=== PATIENT | male | born 1970 | race Caucasian/White ===

== ENCOUNTER 2024-01-11 07:40 | Inpatient (IN) | payer OTHER, SELFPAY ==
[2024-01-11] VITALS (16 sets, daily range): BP systolic 99–154; BP diastolic 54–73; PULSE 59–82; RESP 14–20; TEMP 36.2–37.1; O2SAT 92–97; BMI 37.3
--- NOTE | ~2024-01-11 | CT_ITS ---
EXAMINATION: CT ABDOMEN AND PELVIS WITH CONTRAST CLINICAL INFORMATION: Abdominal pain, umbilical hernia pain COMPARISON: None available. TECHNIQUE: Multidetector volumetric images were obtained from the superior aspect of the liver through the pubic symphysis following administration 85 mL of Omnipaque 350 intravenous contrast. Sagittal and coronal reformatted images were obtained on the technologist's workstation. Oral contrast: No This CT examination was performed using dose optimization techniques as appropriate, variously including the following: *Automated exposure control *Adjustment of mA and/or kV according to patient size (this includes techniques or standardized protocols for targeted exams where dose is matched to indication/reason for exam; i.e. extremities or head) *Use of iterative reconstruction technique DLP: 993 mGy-cm FINDINGS: LUNG BASES: The visualized lung bases are unremarkable. LIVER, GALLBLADDER, AND BILIARY TREE: The liver is enlarged at 19.3 cm in cephalocaudad dimension and has a lobular border with hypertrophy of the left lobe consistent with cirrhosis. No focal hepatic lesion or biliary ductal dilatation is present. The gallbladder is unremarkable with no evidence of radiopaque gallstones, gallbladder wall thickening, or obvious pericholecystic inflammatory changes. PANCREAS: Unremarkable. SPLEEN: Spleen is markedly enlarged at 18 cm in length. ADRENAL GLANDS: Unremarkable. KIDNEYS AND URETERS: The kidneys are normal in size, shape, and attenuation. Bilateral nonobstructing punctate calculi are seen with the largest measuring 3 mm in the left mid kidney (3:42). No hydronephrosis, hydroureter, or ureteral calculi seen. No perinephric stranding. Multiple bilateral tiny benign Bosniak class I renal cysts are noted, which require no additional imaging or follow-up. No solid renal masses are seen. BLADDER: Decompressed but unremarkable GASTROINTESTINAL TRACT: A small hiatal hernia is present. A loop of small bowel is present in an umbilical hernia. The bowel proximal to entry is dilated consistent with obstruction. The exiting loop and distal small bowel is decompressed. The bowel loop within the hernia appears mildly edematous. The colon is decompressed. Some scattered colonic diverticula are seen without diverticulitis. The appendix is normal. ABDOMINAL WALL: A obstructing periumbilical hernia is seen (see above). The fascial defect measures about 1.8 cm. LYMPH NODES: No retroperitoneal lymphadenopathy. VASCULAR: Calcific atherosclerotic changes are present in the aorta and iliofemoral vessels. There is no evidence of an abdominal aortic aneurysm. PELVIC VISCERA: The prostate and seminal vesicles are unremarkable. OSSEOUS STRUCTURES: Multiple subacute rib fractures are seen bilaterally. Slightly more acute fractures are seen involving the right 10th and 11th posterolateral ribs. Degenerative changes are present in the spine most marked at L4-L5 and L5-S1. CT/CT abdomen pelvis w IV con IMPRESSION: 1. Obstructing umbilical hernia containing a loop of small bowel. Inflammatory change with some mild edema in the sac may represent incarceration. 2. Enlarged cirrhotic liver with marked splenomegaly. 3. Bilateral nonobstructing renal calculi. 4. Multiple subacute rib fractures with slightly more acute fractures involving the right 10th and 11th posterolateral ribs. Fleischner guidelines were followed.
--- NOTE | 2024-01-11 08:00 | ED_ITS ---
HPI - Abdominal Pain General Chief Complaint: Abdominal Pain Stated Complaint: ABD PAIN VOMITING X 2 DAYS Time Seen by Provider: 01/11/24 07:51 Source: patient and RN notes reviewed Mode of arrival: ambulatory Limitations: no limitations History of Present Illness HPI narrative: This is a 53-year-old male, with a history of diabetes, presenting to the emergency department complaints of acute onset abdominal pain, nausea, and vomiting x2 days. Patient states that he has a umbilical abdominal hernia and he states that his hernia is now increasing in pain and in size. States that over the last 3 days he has been vomiting ?green bile?. Denies any fevers, chills, chest pain, shortness of breath, diarrhea or constipation. No sick contacts. No other complaints or concerns at this time. MD elicited complaint: abdominal pain Pertinent past history: none Onset (ago): day(s) Pain Consistency: constant Location: periumbilical Severity: moderate Pain scale (0-10): 10 Quality: cramping, stabbing and aching Radiation: none Migration to: no migration Exacerbating factors: vomiting Relieving factors: nothing Associated symptoms: nausea and vomiting Related Data Home Medications Medication Instructions Recorded Confirmed albuterol sulfate 90 mcg/actuation 2 puff inhalation Q6H PRN Wheezing 01/11/24 01/11/24 aerosol inhaler (Ventolin HFA) atorvastatin 40 mg tablet 40 mg PO DAILY 01/11/24 01/11/24 escitalopram oxalate 20 mg tablet 20 mg PO DAILY 01/11/24 01/11/24 furosemide 20 mg tablet 20 mg PO TID 01/11/24 01/11/24 gabapentin 300 mg capsule 300 mg PO TID 01/11/24 01/11/24 levothyroxine 175 mcg tablet 175 mcg PO DAILY 01/11/24 01/11/24 metformin 1,000 mg tablet 1,000 mg PO BID 01/11/24 01/11/24 midodrine 10 mg tablet 10 mg PO BID 01/11/24 01/11/24 pantoprazole 40 mg tablet,delayed 40 mg PO BID 01/11/24 01/11/24 release spironolactone 50 mg tablet 50 mg PO DAILY 01/11/24 01/11/24 Allergies Allergy/AdvReac Type Severity Reaction Status Date / Time No Known Allergies Allergy Verified 01/11/24 13:44 Review of Systems Review of Systems Yes all other systems are reviewed and are negative Constitutional: Reports as per [facility] Past Medical History Attestation statement: The following information was validated with the patient. Medical History (Updated 01/11/24 @ 13:42 by Linda Aparicio) Kidney stones Stage 1 chronic kidney disease Cirrhosis Hyperlipidemia Diabetes type 2, controlled Incarcerated umbilical hernia Surgical History (Updated 01/11/24 @ 13:43 by Linda Aparicio) H/O knee surgery History of surgery on lower extremity H/O elbow surgery H/O Spinal surgery Social History Social History Patient Tobacco Use Status: Former Tobacco user Quit Date: 11/2023 Tobacco use type: Cigarette Cigarette Packs Per Day: 8 Cigarettes Per Day: 160.0 Years Smoked: 18 Substance Use Type: Marijuana Physical Exam ED Vital Signs: Vital Signs - 24 hr 01/11/24 07:54 01/11/24 11:37 01/11/24 13:01 Temperature 97.6 F 98.2 F Pulse Rate 72 62 59 Respiratory Rate 15 20 16 Blood Pressure 154/73 H 99/57 L 102/64 Pulse Oximetry 95 94 94 Oxygen Delivery Method Room Air Room Air Room Air BMI result Body Mass Index 37.3 Const General: cooperative, comfortable and no acute distress Orientation/consciousness: patient oriented x3 Limitations: no limitations [facility] Head: Yes normal to inspection, Yes normocephalic and Yes atraumatic Ears: hearing grossly normal bilaterally General nose exam: Normal external nose present Face and sinus: Yes normal facial exam Mouth: Normal oral and palatal mucosa present, oropharynx normal and moist mucous membranes Throat: Yes posterior oropharynx normal Eyes General: appearance normal, both eyes and all related structures Eyelids: Yes eyelids normal Conjunctivae: conjunctivae normal Sclerae: sclerae normal Pupils: Equal, round and reactive pupils present EOM: EOMs intact bilaterally Neck Neck: Yes normal visual inspection, Yes full ROM and Yes no lymphadenopathy Lymphatic: no lymphadenopathy noted Chest Other: No flail chest, no bony step-off, crepitus bony deformity, patient has tenderness palpation along the left and right lateral ribs, Chest palpation & inspection: normal inspection of the chest Resp Effort & Inspection: normal respiratory effort and able to speak in complete sentences Auscultation: clear to auscultation bilaterally, no crackles, no rales, no rhonchi and no wheezes Cardio Rate: regular rate Rhythm: regular rhythm Heart sounds: S1 normal heart sound present and S2 normal heart sound present GI Other: Obese abdomen, with non reproducible umbilical hernia, slight erythema noted to the umbilicus. Unable to reduce hernia. Lower abdomen diffusely tender. No rebound or guarding. Inspection: Yes normal to inspection Skin General skin exam: no rashes or lesions noted Trauma: no lacerations or abrasions Wounds: no wounds Neuro General: patient oriented x3 and moves all extremities Cranial nerves: Yes Equal, round and reactive pupils present Extrem General: Yes normal to inspection Right upper extremity: normal to inspection Left upper extremity: normal to inspection Right lower extremity: normal to inspection Left lower extremity: normal to inspection Course Reevaluation(s) Reevaluation #1: CT scan returns, revealing obstructing umbilical hernia containing a small loop of bowel, inflammatory change with some mild edema in the sac may representing an incarceration. Dr. Vasquez paged for consultation. Patient no longer experiencing nausea after receiving IV Zofran. Still reporting an 8/10 pain, morphine 4 mg IV ordered. Patient remains hemodynamically stable. Multiple subacute right fractures with slightly more acute fractures involving the right 10th and 11th posterolateral ribs. I discussed this finding with patient, he states that he had a cold several weeks ago and was coughing excessively, he does report that he has had back pain as well. Time: 11:16 Reevaluation #2: Dr. Vasquez saw patient at bedside, will operate on incarcerated hernia later on this afternoon. Patient made NPO. Transfer of care initiated. Time: 11:24 Reevaluation #3: EKG performed, revealing T-wave inversions in V1 through V5, no previous EKG on file for comparison. I informed Dr. Mendoza as well as Dr. Singh. Time: 13:37 Medical Decision Making Medical Decision Making MDM Narrative: This is a 53-year-old male, with a history of diabetes, presenting to the emergency department complaints of abdominal pain, nausea, vomiting x2 days. On arrival, blood pressure mildly elevated 154/73, he has no chest pain, shortness of breath, dizziness or blurred vision. Abdomen is obese, with tenderness palpation along the umbilical region with nonreducible hernia noted. Differential diagnoses include strangulated hernia, bowel obstruction, ischemic bowel, gastroenteritis, gastritis. Less likely appendicitis, nephrolithiasis, pyelonephritis. Plan: Labs, UA, antiemetics, pain management, CT abdomen with IV contrast Differential Diagnosis Differential Diagnoses: The differential diagnosis associated with the presentation includes See above Consult Healthcare Provider Management of the patient was discussed with: Public Health Informatician Dr. Vasquez, general surgeon Lab Data MDM Lab Attestation statement: I reviewed the patient's lab results. slight leukocytosis at 11.9, H&H stable, creatinine 1.09 (no previous for comparison), lactic acid 1.1, alk phosphatase 128, normal LFTs. Negative covid, rsv, flu 01/11/24 08:48 01/11/24 08:48 Labs: Lab Results 01/11/24 01/11/24 01/11/24 Range/Units 08:47 08:48 09:39 WBC 11.9 H (4.8-10.8) X10*3/uL RBC 5.23 (4.60-5.80) X10*6/uL Hgb 14.8 (14.0-18.0) g/dl Hct 43.2 (42.0-52.0) % MCV 82.6 (80.0-98.0) fL MCH 28.3 (27.0-33.0) pg MCHC 34.3 (31.0-36.0) g/dl RDW 15.2 (11.0-16.0) % Plt Count 109 L (160-400) X10*3/uL MPV 11.2 (9.4-12.4) fL Immature Gran % (Auto) 0.6 H (0.0-0.4) % Neut % (Auto) 81.2 H (45-73) % Lymph % (Auto) 7.1 L (20-40) % Park % (Auto) 10.4 (2-11) % Eos % (Auto) 0.2 (0-4) % Baso % (Auto) 0.5 (0-2) % Lymph # (Auto) 0.8 L (1.2-4.9) X10*3/uL Park # (Auto) 1.2 (0.1-1.2) X10*3/uL Eos # (Auto) 0.0 (0.0-0.4) X10*3/uL Baso # (Auto) 0.1 (0.0-0.2) X10*3/uL Abs Immat Gran (auto) 0.07 H (0.00-0.03) X10*3/uL Absolute Neuts (auto) 9.7 H (2.0-8.3) x10*3/uL Absolute Nucleated RBC 0.000 (0.0-0.012) X10*3/uL Nucleated RBC % (auto) 0.0 (0.0-0.2) /100WBC Sodium 139 (135-145) mmol/L Potassium 4.0 (3.3-5.1) mmol/L Chloride 99 (96-108) mmol/L Carbon Dioxide 27 (22-29) mmol/L Anion Gap 17 (12-20) BUN 20 H (9-16) mg/dL Creatinine 1.09 (0.5-1.4) mg/dL Estim Creat Clear Calc 88.9 Estimated GFR > 60 POC Glucose (60-115) mg/dL Random Glucose 192 H (60-115) mg/dL Lactic Acid 1.1 (0.5-2.0) mmol/L Calcium 9.7 (8.4-10.2) mg/dL Magnesium 1.7 (1.6-2.6) mg/dL Total Bilirubin 0.8 (0.0-1.0) mg/dL Direct Bilirubin 0.3 (0.0-0.5) mg/dL AST 23 (5-37) U/L ALT 20 (0-40) U/L Alkaline Phosphatase 128 H (39-117) U/L Troponin I High Sens < 2.7 (<3.5-35.0) ng/L Total Protein 8.1 H (6.5-8.0) g/dL Albumin 4.2 (3.5-5.0) g/dL Lipase 28 (8-78) U/L Influenza Type A (PCR) NEGATIVE (Negative) Influenza Type B (PCR) NEGATIVE (Negative) RSV RNA Qual (PCR) NEGATIVE (Negative) SARS-CoV-2 RNA (RT-PCR) NEGATIVE (Negative) 01/11/24 Range/Units 13:52 WBC (4.8-10.8) X10*3/uL RBC (4.60-5.80) X10*6/uL Hgb (14.0-18.0) g/dl Hct (42.0-52.0) % MCV (80.0-98.0) fL MCH (27.0-33.0) pg MCHC (31.0-36.0) g/dl RDW (11.0-16.0) % Plt Count (160-400) X10*3/uL MPV (9.4-12.4) fL Immature Gran % (Auto) (0.0-0.4) % Neut % (Auto) (45-73) % Lymph % (Auto) (20-40) % Park % (Auto) (2-11) % Eos % (Auto) (0-4) % Baso % (Auto) (0-2) % Lymph # (Auto) (1.2-4.9) X10*3/uL Park # (Auto) (0.1-1.2) X10*3/uL Eos # (Auto) (0.0-0.4) X10*3/uL Baso # (Auto) (0.0-0.2) X10*3/uL Abs Immat Gran (auto) (0.00-0.03) X10*3/uL Absolute Neuts (auto) (2.0-8.3) x10*3/uL Absolute Nucleated RBC (0.0-0.012) X10*3/uL Nucleated RBC % (auto) (0.0-0.2) /100WBC Sodium (135-145) mmol/L Potassium (3.3-5.1) mmol/L Chloride (96-108) mmol/L Carbon Dioxide (22-29) mmol/L Anion Gap (12-20) BUN (9-16) mg/dL Creatinine (0.5-1.4) mg/dL Estim Creat Clear Calc Estimated GFR POC Glucose 147 H (60-115) mg/dL Random Glucose (60-115) mg/dL Lactic Acid (0.5-2.0) mmol/L Calcium (8.4-10.2) mg/dL Magnesium (1.6-2.6) mg/dL Total Bilirubin (0.0-1.0) mg/dL Direct Bilirubin (0.0-0.5) mg/dL AST (5-37) U/L ALT (0-40) U/L Alkaline Phosphatase (39-117) U/L Troponin I High Sens (<3.5-35.0) ng/L Total Protein (6.5-8.0) g/dL Albumin (3.5-5.0) g/dL Lipase (8-78) U/L Influenza Type A (PCR) (Negative) Influenza Type B (PCR) (Negative) RSV RNA Qual (PCR) (Negative) SARS-CoV-2 RNA (RT-PCR) (Negative) Independent Interpretation I performed an independent interpretation of an: EKG Interpretation: EKG sinus bradycardia at a ventricular rate of 59 beats per minute, GA interval 160, QTC 413,t wave inversions in V1-V5. No previous EKG on record for comparison. Radiology Impression Discussion of test interpretation with radiology: I have reviewed the radiologist's reading. Radiologist Impression: EXAMINATION: CT ABDOMEN AND PELVIS WITH CONTRAST CLINICAL INFORMATION: Abdominal pain, umbilical hernia pain COMPARISON: None available. TECHNIQUE: Multidetector volumetric images were obtained from the superior aspect of the liver through the pubic symphysis following administration 85 mL of Omnipaque 350 intravenous contrast. Sagittal and coronal reformatted images were obtained on the technologist's workstation. Oral contrast: No This CT examination was performed using dose optimization techniques as appropriate, variously including the following: *Automated exposure control *Adjustment of mA and/or kV according to patient size (this includes techniques or standardized protocols for targeted exams where dose is matched to indication/reason for exam; i.e. extremities or head) *Use of iterative reconstruction technique DLP: 993 mGy-cm FINDINGS: LUNG BASES: The visualized lung bases are unremarkable. LIVER, GALLBLADDER, AND BILIARY TREE: The liver is enlarged at 19.3 cm in cephalocaudad dimension and has a lobular border with hypertrophy of the left lobe consistent with cirrhosis. No focal hepatic lesion or biliary ductal dilatation is present. The gallbladder is unremarkable with no evidence of radiopaque gallstones, gallbladder wall thickening, or obvious pericholecystic inflammatory changes. PANCREAS: Unremarkable. SPLEEN: Spleen is markedly enlarged at 18 cm in length. ADRENAL GLANDS: Unremarkable. KIDNEYS AND URETERS: The kidneys are normal in size, shape, and attenuation. Bilateral nonobstructing punctate calculi are seen with the largest measuring 3 mm in the left mid kidney (3:42). No hydronephrosis, hydroureter, or ureteral calculi seen. No perinephric stranding. Multiple bilateral tiny benign Bosniak class I renal cysts are noted, which require no additional imaging or follow-up. No solid renal masses are seen. BLADDER: Decompressed but unremarkable GASTROINTESTINAL TRACT: A small hiatal hernia is present. A loop of small bowel is present in an umbilical hernia. The bowel proximal to entry is dilated consistent with obstruction. The exiting loop and distal small bowel is decompressed. The bowel loop within the hernia appears mildly edematous. The colon is decompressed. Some scattered colonic diverticula are seen without diverticulitis. The appendix is normal. ABDOMINAL WALL: A obstructing periumbilical hernia is seen (see above). The fascial defect measures about 1.8 cm. LYMPH NODES: No retroperitoneal lymphadenopathy. VASCULAR: Calcific atherosclerotic changes are present in the aorta and iliofemoral vessels. There is no evidence of an abdominal aortic aneurysm. PELVIC VISCERA: The prostate and seminal vesicles are unremarkable. OSSEOUS STRUCTURES: Multiple subacute rib fractures are seen bilaterally. Slightly more acute fractures are seen involving the right 10th and 11th posterolateral ribs. Degenerative changes are present in the spine most marked at L4-L5 and L5-S1. CT/CT abdomen pelvis w IV con IMPRESSION: 1. Obstructing umbilical hernia containing a loop of small bowel. Inflammatory change with some mild edema in the sac may represent incarceration. 2. Enlarged cirrhotic liver with marked splenomegaly. 3. Bilateral nonobstructing renal calculi. 4. Multiple subacute rib fractures with slightly more acute fractures involving the right 10th and 11th posterolateral ribs. Fleischner guidelines were followed. Dictated By: Isma Lopez MD Medications Administered Generic Name Dose Route Start Last Admin Trade Name Freq PRN Reason Stop Dose Admin Lactated Ringer's 1,000 mls @ 125 mls/hr 01/11/24 12:15 01/11/24 13:05 Lr IVCONT 125 mls/hr .Q8H JUAN DAVID Administration Discontinued Medications Generic Name Dose Route Start Last Admin Trade Name Freq PRN Reason Stop Dose Admin Sodium Chloride 1,000 mls @ 500 mls/hr 01/11/24 07:58 01/11/24 11:28 Ns IV 01/11/24 09:57 Infused .Q2H ONE Infusion Iohexol 100 ml 01/11/24 09:48 01/11/24 09:48 Iohexol 350 Mg/Ml 100 Ml Infus..Btl IV 01/11/24 09:49 85 ml ONCE ONE Administration Morphine Sulfate 4 mg 01/11/24 07:58 01/11/24 08:53 Morphine Sulfate 4 Mg/Ml Cartridge IVPUSH 01/11/24 07:59 4 mg ONCE ONE Administration Protocol Morphine Sulfate 4 mg 01/11/24 11:06 01/11/24 11:38 Morphine Sulfate 4 Mg/Ml Cartridge IVPUSH 01/11/24 11:07 4 mg ONCE ONE Administration Protocol Ondansetron HCl 4 mg 01/11/24 07:58 01/11/24 08:52 Ondansetron Hcl 4 Mg/2 Ml Vial IVPUSH 01/11/24 07:59 4 mg ONCE ONE Administration Critical Care Time Critical Care Time Critical Care Time: Yes Total Critical Care Time: 35 Attestation: I have personally provided critical care time exclusive of time spent on separately billable procedures. Time includes review of lab data, radiology results, discussion with consultants, and monitoring for potential decompensation. Intervention performed as documented. Discharge Plan Discharge Clinical Impression: Incarcerated umbilical hernia Patient Disposition: Admitted As Inpatient Interventions: Admission Worksheet (ED) Last Done: 01/11/24 13:35 Discharge Date/Time: 01/11/24 13:35
[2024-01-11 08:51] LABS: MANUAL DIFF FLAG NO
[2024-01-11] MEDS: 0.9 % Sodium Chloride 1,000 ML 500 ML IV (08:52)
[2024-01-11] MEDS: ondansetron HCL 4 MG/2 ML VIAL IVPUSH ×2 (08:52→17:30)
[2024-01-11 08:53] LABS: Basophils Absolute Auto 0.1 X10*3/uL (0.0-0.2); Basophils Percent Auto 0.5 % (0-2); Eosinophils Percent Auto 0.2 % (0-4); Hematocrit 43.2 % (42.0-52.0); Hemoglobin 14.8 g/dl (14.0-18.0); Imm Gran Abs Auto 0.07 X10*3/uL (0.00-0.03); Imm Gran Pct Auto 0.6 % (0.0-0.4); Lymphocytes Absolute Auto 0.8 X10*3/uL (1.2-4.9); Lymphocytes Percent Auto 7.1 % (20-40); Mean Corpuscular HGB Conc 34.3 g/dl (31.0-36.0); Mean Corpuscular Hemoglobin 28.3 pg (27.0-33.0); Mean Corpuscular Volume 82.6 fL (80.0-98.0); Mean Platelet Volume 11.2 fL (9.4-12.4); Monocytes Absolute Auto 1.2 X10*3/uL (0.1-1.2); Monocytes Percent Auto 10.4 % (2-11); Neutrophils Absolute Auto 9.7 x10*3/uL (2.0-8.3); Neutrophils Percent Auto 81.2 % (45-73); Platelet Count 109 X10*3/uL (160-400); Red Blood Count 5.23 X10*6/uL (4.60-5.80); Red Cell Distribution Width 15.2 % (11.0-16.0); White Blood Count 11.9 X10*3/uL (4.8-10.8)
[2024-01-11] MEDS: Morphine Sulfate 4 MG/ML CARTRIDGE IVPUSH ×3 (08:53→23:53)
[2024-01-11 09:04] LABS: Lactic Acid 1.1 mmol/L (0.5-2.0)
[2024-01-11 09:09] LABS: Alanine Aminotransferase 20 U/L (0-40); Albumin Level 4.2 g/dL (3.5-5.0); Alkaline Phosphatase 128 U/L (39-117); Anion Gap 17 (12-20); Aspartate Amino Transferase 23 U/L (5-37); Bilirubin Direct 0.3 mg/dL (0.0-0.5); Bilirubin Total 0.8 mg/dL (0.0-1.0); Blood Urea Nitrogen 20 mg/dL (9-16); Calcium 9.7 mg/dL (8.4-10.2); Carbon Dioxide 27 mmol/L (22-29); Chloride 99 mmol/L (96-108); Creatinine Clr Calc Pharmacy 88.9; Estimated Glomerular Filt Rate > 60; Glucose Random 192 mg/dL (60-115); Lipase 28 U/L (8-78); Magnesium 1.7 mg/dL (1.6-2.6); Sodium 139 mmol/L (135-145); Total Protein 8.1 g/dL (6.5-8.0)
--- NOTE | 2024-01-11 09:14 | PC.NURSE ---
pt a&o x4, pleasant, calm, and cooperative. 20G IV placed to LAC, labs drawn and sent. pt medicated per mar and fluids hung. pt resting quietl yon stretcher in no apparent distress. rr even/unlabored. call garcia within reach. plan of care ongoing.
[2024-01-11 09:17] LABS: Troponin-I High Sensitivity < 2.7 ng/L (<3.5-35.0)
[2024-01-11] MEDS: iohexoL 350 MG/ML 100 ML INFUS..BTL IV (09:48)
[2024-01-11 10:56] LABS: Influenza A PCR NEGATIVE (Negative); Influenza B PCR NEGATIVE (Negative); Resp Syncy Virus RNA Qual PCR NEGATIVE (Negative); SARS COV2 PCR INHOUSE NEGATIVE (Negative)
--- NOTE | 2024-01-11 12:02 | ECG_ITS ---
Test Reason : preop Blood Pressure : / mmHG Vent. Rate : 059 BPM Atrial Rate : 059 BPM P-R Int : 160 ms QRS Dur : 086 ms QT Int : 418 ms P-R-T Axes : 003 033 -25 degrees QTc Int : 413 ms Sinus bradycardia Low voltage QRS Nonspecific ST and T wave abnormality Abnormal ECG No previous ECGs available Referred By: Aure Esparza Electronically Signed By:JOSE ANTONIO MARCIAL
--- NOTE | 2024-01-11 12:15 | P.HPHOSP_ITS ---
History of Present Illness Date of Service: 01/11/24 Chief Complaint: Abdominal pain with nausea and vomiting 53-year-old male with known history of diabetes type 2 managed on metformin along with hyperlipidemia and hypertension presents with approximately 2 days of nausea and vomiting a bile colored liquid. He states a history of an umbilical hernia and now over the last 2 days this has increased in size and is more painful. He denies fever chills shortness of breath. CT of abdomen and pelvis done in the ER demonstrates an obstructing umbilical hernia containing a loop of small bowel along with inflammatory change mild a dream as in the sac. Question incarceration. Seen by Dr. Vasquez; scheduled for surgical repair later this afternoon. Review of Systems 2 Review of Systems: Denies chest pain Denies shortness of breath Admits nausea vomiting .... No diarrhea Denies fever chills PMFSH Social History Smoked in Last 30 Days: Yes Use of substances other than those prescribed or required for medical reasons: Yes Substance Use Type: Marijuana Advance Directives: No Advance Directives Information Provided: No Meds Allergies Allergy/AdvReac Type Severity Reaction Status Date / Time No Known Allergies Allergy Verified 01/11/24 07:57 Active Medications: Current Medications Acetaminophen (Acetaminophen 325 Mg Tablet) 650 mg PO Q6H PRN PRN Reason: Pain, Mild (Pain Scale 1-3) Dextrose (Dextrose 50 % 25 Gm/50 Ml Syringe) 25 gm IVPUSH Q15M PRN; Protocol PRN Reason: per Hypoglycemia Standing Ord. Glucose (Glucose Gel 15 Gm Gel..Gram.) 15 gm PO Q15M PRN; Protocol PRN Reason: per Hypoglycemia Standing Ord. Lactated Ringer's (Lr) 1,000 mls @ 125 mls/hr IVCONT .Q8H JUAN DAVID Insulin Human Lispro (Insulin Lispro 100 Unit/Ml 3 Ml Vial) 0 unit SUBCUT QIDACHS JUAN DAVID; Protocol Morphine Sulfate (Morphine Sulfate 4 Mg/Ml Cartridge) 4 mg IVPUSH Q4H PRN; Protocol PRN Reason: Pain, Moderate(Pain Scale 4-6) Ondansetron HCl (Ondansetron Hcl 4 Mg/2 Ml Vial) 4 mg IVPUSH Q8H PRN PRN Reason: Nausea and Vomiting Pantoprazole Sodium (Pantoprazole Sodium 40 Mg/10 Ml Vial) 40 mg IVPUSH BID@0630,1630 [facility] Sodium Chloride (0.9 % Sodium Chloride Flush 3 Ml Syringe) 3 ml IVFLUSH QSHIFT [facility] Home Medications Medication Instructions Recorded Confirmed Last Taken Type albuterol sulfate 90 mcg/actuation 2 puff inhalation Q6H PRN Wheezing 01/11/24 Unknown History aerosol inhaler (Ventolin HFA) atorvastatin 40 mg tablet 40 mg PO DAILY 01/11/24 Unknown History escitalopram oxalate 20 mg tablet 20 mg PO DAILY 01/11/24 Unknown History furosemide 20 mg tablet 20 mg PO TID 01/11/24 Unknown History gabapentin 300 mg capsule 300 mg PO TID 01/11/24 Unknown History levothyroxine 175 mcg tablet 175 mcg PO DAILY 01/11/24 Unknown History metformin 1,000 mg tablet 1,000 mg PO BID 01/11/24 Unknown History midodrine 10 mg tablet 10 mg PO BID 01/11/24 Unknown History pantoprazole 40 mg tablet,delayed 40 mg PO BID 01/11/24 Unknown History release spironolactone 50 mg tablet 50 mg PO DAILY 01/11/24 Unknown History Physical Exam 2 Vital Signs and Narrative: Vital Signs: Last Vital Signs Temp 98.2 F 01/11/24 11:37 Pulse 62 01/11/24 11:37 Resp 20 01/11/24 11:37 BP 99/57 L 01/11/24 11:37 Pulse Ox 94 01/11/24 11:37 O2 Del Method Room Air 01/11/24 11:37 BMI result Body Mass Index 37.3 Const: Other: Awake alert no acute distress Resp: Other: Clear to auscultation bilaterally no rales rhonchi wheezes Cardio: Other: No S4; positive S1-S2; no S3 murmurs rubs or gallops GI: Other: Obese distended tender periumbilical. Quiet bowel sounds Extrem: Other: No edema bilaterally Results Labs 01/11/24 08:48 01/11/24 08:48 Labs: Laboratory Results - last 24 hr 01/11/24 01/11/24 01/11/24 08:47 08:48 09:39 MCV 82.6 MCH 28.3 MCHC 34.3 RDW 15.2 Plt Count 109 L MPV 11.2 Immature Gran % (Auto) 0.6 H Neut % (Auto) 81.2 H Lymph % (Auto) 7.1 L Emmons % (Auto) 10.4 Eos % (Auto) 0.2 Baso % (Auto) 0.5 Lymph # (Auto) 0.8 L Emmons # (Auto) 1.2 Eos # (Auto) 0.0 Baso # (Auto) 0.1 Abs Immat Gran (auto) 0.07 H Absolute Neuts (auto) 9.7 H Absolute Nucleated RBC 0.000 Nucleated RBC % (auto) 0.0 Anion Gap 17 Estim Creat Clear Calc 88.9 Estimated GFR > 60 Random Glucose 192 H Lactic Acid 1.1 Calcium 9.7 Magnesium 1.7 Total Bilirubin 0.8 Direct Bilirubin 0.3 AST 23 ALT 20 Alkaline Phosphatase 128 H Troponin I High Sens < 2.7 Total Protein 8.1 H Albumin 4.2 Lipase 28 Influenza Type A (PCR) NEGATIVE Influenza Type B (PCR) NEGATIVE RSV RNA Qual (PCR) NEGATIVE SARS-CoV-2 RNA (RT-PCR) NEGATIVE Imaging Radiologist's Impressions: Impressions Abdomen/Pelvis CT 01/11/24 09:48 IMPRESSION: 1. Obstructing umbilical hernia containing a loop of small bowel. Inflammatory change with some mild edema in the sac may represent incarceration. 2. Enlarged cirrhotic liver with marked splenomegaly. 3. Bilateral nonobstructing renal calculi. 4. Multiple subacute rib fractures with slightly more acute fractures involving the right 10th and 11th posterolateral ribs. Fleischner guidelines were followed. Assessment and Plan (1) Incarcerated umbilical hernia: Status: Acute (2) Diabetes type 2, controlled: Qualifiers: Diabetes mellitus halfway insulin use: without intermission coordinator use Diabetes mellitus complication status: without complication Qualified Code(s): E11.9 - Type 2 diabetes mellitus without complications Status: Acute (3) Hyperlipidemia: Qualifiers: Hyperlipidemia type: unspecified Qualified Code(s): E78.5 - Hyperlipidemia, unspecified Status: Acute Plan 53-year-old male with known history of umbilical hernia presents with 2 days of worsening abdominal pain accompanied by nausea and vomiting green bile material. 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 He will be admitted pending surgical resection later today 1. Incarcerated umbilical hernia -NPO pending surgery -patient is a moderate but acceptable cardiovascular risk for planned procedure and may proceed as per Dr. Vasquez. There are no medically prohibitive issues at this time -further treatment as per Dr. Vasquez 2.DMII -will hold metformin at this time pending surgery. Reassess in a.m. with regards to intake -lispro correctional scale -adjust as indicated 3. Cirrhosis (patient denies alcohol use states secondary to diabetes) -will hold Aldactone and midodrine at this time -gentle IV fluids while NPO Boots Full Code Patient requires at least 2 midnights of inpatient stay going forward for surgical intervention to correct incarcerated umbilical hernia and medical follow-up. This can not be achieved a lesser acute setting Quality Stroke Does the patient have a stroke diagnosis?: No VTE Prior VTE?: No VTE Risk Level:: Medical - moderate - high VTE Device Contraindication: N/A - Device Ordered VTE Drug Contraindication: Treatment Not Indicated
--- NOTE | 2024-01-11 12:40 | PHA.MEDREC ---
Pharmacy Consult ? Medication Reconciliation Pharmacy has completed the medication reconciliation.
--- NOTE | 2024-01-11 13:00 | P.CONGS_ITS ---
History of Present Illness Consult details Consult date: 01/11/24 Requesting physician: Becki Miguel Narrative: 53-year-old male patient presenting with a 3 day history of pain in the umbilicus. He has a long history of an umbilical hernia which is intermittently become more distended with ascites his cirrhosis. He began to have increased pain approximately 3 days ago and was unable to reduce the hernia. He also reports associated nausea and vomiting. His bowels have been normal. He denies any bleeding per rectum. His past history is significant for diabetes, cirrhosis with ascites now controlled. Workup in the emergency department with CT abdomen and pelvis revealed an obstructing umbilical hernia containing a loop of small bowel. Inflammatory changes with mild edema in the sac were suggestive incarceration. He is being admitted for repair of this incarcerated, possibly strangulated umbilical hernia. Review of Systems 2 Review of Systems: Yes all other systems are reviewed and are negative Constitutional: Constitutional: Denies chills, Denies fever(s), Denies headache(s) and Reports increased appetite ENT: Denies headache(s) Cardiovascular: Cardiovascular: Denies chest pain, Denies irregular heart rhythm and Denies leg edema Respiratory: Respiratory: Denies chest congestion, Denies cough and Denies hemoptysis Gastrointestinal: Gastrointestinal: Reports abdominal pain, Reports bloating, Reports nausea and Reports vomiting Neurologic: Denies headache(s) PMFSH Past Medical History Medical History (Updated 01/11/24 @ 13:05 by Horacio Vasquez MD) Cirrhosis Hyperlipidemia Diabetes type 2, controlled Incarcerated umbilical hernia Surgical History Surgical History (Updated 01/11/24 @ 13:05 by Horacio Vasquez MD) H/O Spinal surgery Social History Social History Smoked in Last 30 Days: Yes Use of substances other than those prescribed or required for medical reasons: Yes Substance Use Type: Marijuana Advance Directives: No Advance Directives Information Provided: No Meds Allergies Allergy/AdvReac Type Severity Reaction Status Date / Time No Known Allergies Allergy Verified 01/11/24 07:57 Active Medications: Current Medications Acetaminophen (Acetaminophen 325 Mg Tablet) 650 mg PO Q6H PRN PRN Reason: Pain, Mild (Pain Scale 1-3) Albuterol Sulfate (Albuterol Sulfate 90 Mcg 8 Gm Inhaler) 2 puff INHALE RQ4H PRN PRN Reason: Wheezing Dextrose (Dextrose 50 % 25 Gm/50 Ml Syringe) 25 gm IVPUSH Q15M PRN; Protocol PRN Reason: per Hypoglycemia Standing Ord. Glucose (Glucose Gel 15 Gm Gel..Gram.) 15 gm PO Q15M PRN; Protocol PRN Reason: per Hypoglycemia Standing Ord. Lactated Ringer's (Lr) 1,000 mls @ 125 mls/hr IVCONT .Q8H [facility] Cefazolin Sodium/Dextrose (Ancef) 2 gm in 50 mls @ 100 mls/hr IV PREOP ONE Stop: 01/11/24 13:24 Insulin Human Lispro (Insulin Lispro 100 Unit/Ml 3 Ml Vial) 0 unit SUBCUT QIDACHS [facility]; Protocol Morphine Sulfate (Morphine Sulfate 4 Mg/Ml Cartridge) 4 mg IVPUSH Q4H PRN; Protocol PRN Reason: Pain, Moderate(Pain Scale 4-6) Ondansetron HCl (Ondansetron Hcl 4 Mg/2 Ml Vial) 4 mg IVPUSH Q8H PRN PRN Reason: Nausea and Vomiting Pantoprazole Sodium (Pantoprazole Sodium 40 Mg/10 Ml Vial) 40 mg IVPUSH BID@0630,1630 [facility] Sodium Chloride (0.9 % Sodium Chloride Flush 3 Ml Syringe) 3 ml IVFLUSH QSHIFT [facility] Home Medications Medication Instructions Recorded Confirmed Last Taken Type albuterol sulfate 90 mcg/actuation 2 puff inhalation Q6H PRN Wheezing 01/11/24 01/11/24 01/09/24 History aerosol inhaler (Ventolin HFA) atorvastatin 40 mg tablet 40 mg PO DAILY 01/11/24 01/11/24 01/09/24 History escitalopram oxalate 20 mg tablet 20 mg PO DAILY 01/11/24 01/11/24 01/09/24 History furosemide 20 mg tablet 20 mg PO TID 01/11/24 01/11/24 01/09/24 History gabapentin 300 mg capsule 300 mg PO TID 01/11/24 01/11/24 01/09/24 History levothyroxine 175 mcg tablet 175 mcg PO DAILY 01/11/24 01/11/24 01/09/24 History metformin 1,000 mg tablet 1,000 mg PO BID 01/11/24 01/11/24 01/09/24 History midodrine 10 mg tablet 10 mg PO BID 01/11/24 01/11/24 01/09/24 History pantoprazole 40 mg tablet,delayed 40 mg PO BID 01/11/24 01/11/24 01/09/24 History release spironolactone 50 mg tablet 50 mg PO DAILY 01/11/24 01/11/24 01/09/24 History Physical Exam 2 Vital Signs: Vital Signs: Last Vital Signs Temp 98.2 F 01/11/24 11:37 Pulse 62 01/11/24 11:37 Resp 20 01/11/24 11:37 BP 99/57 L 01/11/24 11:37 Pulse Ox 94 01/11/24 11:37 O2 Del Method Room Air 01/11/24 11:37 BMI result Body Mass Index 37.3 Const: General: cooperative and no acute distress Nutritional Appearance: w ell nourished Orientation/consciousness: patient oriented x3 Limitations: no limitations HEENT: Head: Yes normocephalic and Yes atraumatic Ears: hearing grossly normal bilaterally Resp: Effort & Inspection: normal respiratory effort, no audible wheezes, no cough and no respiratory distress Cardio: Jugular venous distension: no JVD GI: Inspection: Yes normal to inspection Palpation (GI): Soft to palpation, Tenderness to palpation present (GI) periumbilically, no guarding, not rigid and Hernia present umbilical (Non reducible, 4 cm, tender, red skin) Percussion: Yes normal to percussion Auscultation: normal bowel sounds Rectal Exam - Male: Yes deferred Abdomen image: 1. Skin: Other: Warm, dry, no rash Neuro: General: patient oriented x3 Extrem: General: Yes no clubbing, cyanosis or edema Results Labs 01/11/24 08:48 01/11/24 08:48 Labs: Abnormal lab results 01/11/24 Range/Units 08:48 WBC 11.9 H (4.8-10.8) X10*3/uL Plt Count 109 L (160-400) X10*3/uL Immature Gran % (Auto) 0.6 H (0.0-0.4) % Neut % (Auto) 81.2 H (45-73) % Lymph % (Auto) 7.1 L (20-40) % Lymph # (Auto) 0.8 L (1.2-4.9) X10*3/uL Abs Immat Gran (auto) 0.07 H (0.00-0.03) X10*3/uL Absolute Neuts (auto) 9.7 H (2.0-8.3) x10*3/uL BUN 20 H (9-16) mg/dL Random Glucose 192 H (60-115) mg/dL Alkaline Phosphatase 128 H (39-117) U/L Total Protein 8.1 H (6.5-8.0) g/dL Short CBC 01/11/24 Range/Units 08:48 WBC 11.9 H (4.8-10.8) X10*3/uL Hgb 14.8 (14.0-18.0) g/dl Hct 43.2 (42.0-52.0) % Plt Count 109 L (160-400) X10*3/uL BMP 01/11/24 08:48 Sodium 139 Potassium 4.0 Chloride 99 Carbon Dioxide 27 BUN 20 H Creatinine 1.09 Calcium 9.7 Liver Function 01/11/24 Range/Units 08:48 Total Bilirubin 0.8 (0.0-1.0) mg/dL Direct Bilirubin 0.3 (0.0-0.5) mg/dL AST 23 (5-37) U/L ALT 20 (0-40) U/L Alkaline Phosphatase 128 H (39-117) U/L Albumin 4.2 (3.5-5.0) g/dL All other labs normal. Assessment and Plan (1) Incarcerated umbilical hernia: Status: Acute Plan 53-year-old male patient with a prior history of ascites due to cirrhosis presenting with an incarcerated umbilical hernia which by CT contain small bowel with inflammatory changes. Findings are consistent with an incarcerated possibly strangulated umbilical hernia. I recommended repair of the hernia with possible bowel resection. After discussion of the procedure, risks, and alternatives, he consents to a repair of umbilical hernia, possible small-bowel resection. He has been added onto the operative schedule for today. Procedures Date of Service Date of Service: 01/11/24
[2024-01-11] MEDS: Lactated Ringers 1,000 ML 125 ML IVCONT ×3 (13:05→23:58)
--- NOTE | 2024-01-11 13:33 | PC.NURSE ---
Addendum entered by Feli Stone RN 01/11/24 13:33: pt to OR Original Note: report given to TEENA THOMPSON.
[2024-01-11 13:57] LABS: Glucose, Whole Blood 147 mg/dL (60-115)
[2024-01-11 14:05] LABS: Troponin-I High Sensitivity < 2.7 ng/L (<3.5-35.0)
--- NOTE | 2024-01-11 15:23 | P.OP_ITS ---
Operative Note Operative Note Date of Service: 01/11/24 Narrative: Preoperative diagnosis: Incarcerated umbilical hernia, 4 cm Postoperative diagnosis: Same Procedure: Repair of incarcerated umbilical hernia with mesh Surgeon: Horacio Vasquez MD Visual Merchandising Coordinator: Tamiko Melvin PA-C Anesthesia: General endotracheal Indications for procedure: 53-year-old male patient presenting with 3 day history of an incarcerated umbilical hernia. He reports nausea, vomiting, and pain in the umbilicus. Known about the hernia for many years only recently developed increased pain at the site. He reports not being able to reduce the hernia. On examination the patient was found to have a tender red umbilicus. CT abdomen and pelvis confirmed incarcerated loop of small bowel within the hernia with inflammatory changes. Operative findings: Patient was found to have viable small bowel within the hernia contents. Specimen: Hernia sac Estimated blood loss: Less than 5 mL Complications: None Procedure details: Patient was brought to the OR placed in supine position. After administering general anesthesia the patient's abdomen was prepped with ChloraPrep and draped in a sterile fashion. A surgical time-out was called the consent confirmed. Patient received preoperative antibiotics and Venodyne boots were in place. Local anesthesia was infiltrated in a transverse fashion around the umbilicus. An incision was then made in transverse fashion above the umbilicus and carried out through subcutaneous tissue. Dissection was continued to the umbilical sac down to the fascia. Umbilical sac was then dissected from the umbilical skin using electrocautery. The sac was then entered in the bowel examined. Bowels found to be healthy with no evidence of ischemia. Bowels reduced into the abdominal cavity. The redundant hernia sac was then excised using electrocautery and sent as a specimen. The sac was then closed using a running 0 Polysorb suture. Preperitoneal space was then dissected using electrocautery. Hemostasis was assured using electrocautery. A 6.4 cm round Ventralex mesh was then obtained. This was deployed within the preperitoneal space. This was secured in 4 quadrants using the 0 Tycron suture. Fascia was then closed over the mesh using 0 Tycron in a [id number] fashion. Wounds were irrigated with saline solution and suctioned dry. Additional local was instilled at this time. The umbilical skin was then reattached to the fascia using a 3-0 Polysorb suture. Dermis was reapproximated using interrupted 3-0 Polysorb sutures. Skin was closed using a running subcuticular 4-0 Polysorb suture. Steri-Strips, 2 x 2 gauze and Tegaderm were then applied. The patient tolerated the procedure well. Sponge, instrument, needle counts reported as correct. The patient was transferred to PACU in stable condition.
[2024-01-11] MEDS: Pantoprazole Sodium 40 MG/10 ML VIAL IVPUSH (17:40)
[2024-01-11] MEDS: Acetaminophen 325 MG TABLET 650 MG PO (19:31)
[2024-01-11] MEDS: oxyCODONE HCl Immed Release 5 MG TABLET PO (21:12)
[2024-01-11 21:49] LABS: Glucose, Whole Blood 193 mg/dL (60-115)
[2024-01-12 01:59] VITALS: BMI 37.3
[2024-01-12 03:19] VITALS: BP 124/68; PULSE 54; RESP 18; TEMP 36.2; O2SAT 97
[2024-01-12 05:45] LABS: MANUAL DIFF FLAG NO
[2024-01-12] MEDS: oxyCODONE HCl Immed Release 5 MG TABLET PO (05:49)
[2024-01-12] MEDS: Pantoprazole Sodium 40 MG/10 ML VIAL IVPUSH (05:49)
[2024-01-12 06:10] LABS: Basophils Percent Auto 0.3 % (0-2); Hematocrit 37.2 % (42.0-52.0); Hemoglobin 12.5 g/dl (14.0-18.0); Imm Gran Abs Auto 0.06 X10*3/uL (0.00-0.03); Imm Gran Pct Auto 0.6 % (0.0-0.4); Lymphocytes Absolute Auto 0.7 X10*3/uL (1.2-4.9); Lymphocytes Percent Auto 6.8 % (20-40); Mean Corpuscular HGB Conc 33.6 g/dl (31.0-36.0); Mean Corpuscular Volume 83.2 fL (80.0-98.0); Mean Platelet Volume 11.9 fL (9.4-12.4); Monocytes Percent Auto 9.9 % (2-11); Neutrophils Absolute Auto 8.5 x10*3/uL (2.0-8.3); Neutrophils Percent Auto 82.4 % (45-73); Red Blood Count 4.47 X10*6/uL (4.60-5.80); Red Cell Distribution Width 15.2 % (11.0-16.0); White Blood Count 10.3 X10*3/uL (4.8-10.8)
[2024-01-12 06:13] LABS: Alanine Aminotransferase 13 U/L (0-40); Albumin Level 3.3 g/dL (3.5-5.0); Alkaline Phosphatase 95 U/L (39-117); Anion Gap 12 (12-20); Aspartate Amino Transferase 20 U/L (5-37); Bilirubin Total 0.6 mg/dL (0.0-1.0); Blood Urea Nitrogen 14 mg/dL (9-16); Calcium 8.4 mg/dL (8.4-10.2); Carbon Dioxide 24 mmol/L (22-29); Chloride 105 mmol/L (96-108); Creatinine Clr Calc Pharmacy 127.5; Estimated Glomerular Filt Rate > 60; Glucose Random 140 mg/dL (60-115); Potassium 3.8 mmol/L (3.3-5.1); Sodium 137 mmol/L (135-145); Total Protein 6.4 g/dL (6.5-8.0)
[2024-01-12 06:18] LABS: Platelet Count 83 X10*3/uL (160-400)
[2024-01-12 06:58] LABS: Glucose, Whole Blood 129 mg/dL (60-115)
[2024-01-12 07:07] VITALS: BP 125/64; PULSE 60; RESP 20; TEMP 36.2; O2SAT 95
--- NOTE | 2024-01-12 07:44 | P.PNGS_ITS ---
Subjective Subjective Date of Service: 01/12/24 Interval history: Tolerating solid diet. Pain well controlled. OOb and ambulated last night. Passing flatus. Asking to go home this morning. Physical Exam 2 Vital Signs: Vital Signs: Last Vital Signs Temp 97.1 F 01/12/24 07:07 Pulse 60 01/12/24 07:07 Resp 20 01/12/24 07:07 BP 125/64 01/12/24 07:07 Pulse Ox 95 01/12/24 07:07 O2 Del Method Room Air 01/12/24 07:07 O2 Flow Rate 2 01/11/24 15:48 BMI result Body Mass Index 37.3 Const: General: comfortable, no acute distress and alert O rientation/consciousness: patient oriented x3 Resp: Effort & Inspection: normal respiratory effort GI: Other: protuberant abdomen Inspection: Yes incision (small amt of blood staining on dressing ) P alpation (GI): Soft to palpation, Tenderness to palpation present (GI) (mild incisional) and no guarding Skin: General skin exam: no rashes or lesions noted Neuro: General: patient oriented x3 Objective Data Active Medications Acetaminophen (Acetaminophen 325 Mg Tablet) 650 mg PO Q6H PRN PRN Reason: Pain, Mild (Pain Scale 1-3) Last Admin: 01/11/24 19:31 Dose: 650 mg Documented By: MAYE Albuterol Sulfate (Albuterol Sulfate 90 Mcg 8 Gm Inhaler) 2 puff INHALE RQ4H PRN PRN Reason: Wheezing Dextrose (Dextrose 50 % 25 Gm/50 Ml Syringe) 25 gm IVPUSH Q15M PRN; Protocol PRN Reason: per Hypoglycemia Standing Ord. Glucose (Glucose Gel 15 Gm Gel..Gram.) 15 gm PO Q15M PRN; Protocol PRN Reason: per Hypoglycemia Standing Ord. Lactated Ringer's (Lr) 1,000 mls @ 125 mls/hr IVCONT .Q8H [facility] Last Admin: 01/11/24 23:58 Dose: 125 mls/hr Documented By: KAMRYN Insulin Human Lispro (Insulin Lispro 100 Unit/Ml 3 Ml Vial) 0 unit SUBCUT QIDACHS [facility]; Protocol Last Admin: 01/12/24 07:37 Dose: Not Given Documented By: CASSIUS Non-Admin Reason: No Insulin Coverage Morphine Sulfate (Morphine Sulfate 4 Mg/Ml Cartridge) 4 mg IVPUSH Q4H PRN; Protocol PRN Reason: Pain, Moderate(Pain Scale 4-6) Last Admin: 01/11/24 23:53 Dose: 4 mg Documented By: KAMRYN Ondansetron HCl (Ondansetron Hcl 4 Mg/2 Ml Vial) 4 mg IVPUSH Q8H PRN PRN Reason: Nausea and Vomiting Last Admin: 01/11/24 17:30 Dose: 4 mg Documented By: MAYE Oxycodone HCl (Oxycodone Hcl Immed Release 5 Mg Tablet) 5 mg PO Q6H PRN PRN Reason: Pain, Moderate(Pain Scale 4-6) Last Admin: 01/12/24 05:49 Dose: 5 mg Documented By: KAMRYN Pantoprazole Sodium (Pantoprazole Sodium 40 Mg/10 Ml Vial) 40 mg IVPUSH BID@0630,1630 [facility] Last Admin: 01/12/24 05:49 Dose: 40 mg Documented By: KAMRYN Sodium Chloride (0.9 % Sodium Chloride Flush 3 Ml Syringe) [facility] Last Admin: 01/11/24 23:59 Dose: Not Given Documented By: KAMRYN Non-Admin Reason: IV Running Labs 01/12/24 05:16 01/12/24 05:15 Labs: Laboratory Results - last 24 hr 01/11/24 01/11/24 01/11/24 08:47 08:48 09:39 MCV 82.6 MCH 28.3 MCHC 34.3 RDW 15.2 Plt Count 109 L MPV 11.2 Immature Gran % (Auto) 0.6 H Neut % (Auto) 81.2 H Lymph % (Auto) 7.1 L King % (Auto) 10.4 Eos % (Auto) 0.2 Baso % (Auto) 0.5 Lymph # (Auto) 0.8 L King # (Auto) 1.2 Eos # (Auto) 0.0 Baso # (Auto) 0.1 Abs Immat Gran (auto) 0.07 H Absolute Neuts (auto) 9.7 H Absolute Nucleated RBC 0.000 Nucleated RBC % (auto) 0.0 Anion Gap 17 Estim Creat Clear Calc 88.9 Estimated GFR > 60 POC Glucose Random Glucose 192 H Lactic Acid 1.1 Calcium 9.7 Magnesium 1.7 Total Bilirubin 0.8 Direct Bilirubin 0.3 AST 23 ALT 20 Alkaline Phosphatase 128 H Troponin I High Sens < 2.7 Total Protein 8.1 H Albumin 4.2 Lipase 28 Influenza Type A (PCR) NEGATIVE Influenza Type B (PCR) NEGATIVE RSV RNA Qual (PCR) NEGATIVE SARS-CoV-2 RNA (RT-PCR) NEGATIVE 01/11/24 01/11/24 01/11/24 13:33 13:52 21:44 MCV MCH MCHC RDW Plt Count MPV Immature Gran % (Auto) Neut % (Auto) Lymph % (Auto) King % (Auto) Eos % (Auto) Baso % (Auto) Lymph # (Auto) King # (Auto) Eos # (Auto) Baso # (Auto) Abs Immat Gran (auto) Absolute Neuts (auto) Absolute Nucleated RBC Nucleated RBC % (auto) Anion Gap Estim Creat Clear Calc Estimated GFR POC Glucose 147 H 193 H Random Glucose Lactic Acid Calcium Magnesium Total Bilirubin Direct Bilirubin AST ALT Alkaline Phosphatase Troponin I High Sens < 2.7 Total Protein Albumin Lipase Influenza Type A (PCR) Influenza Type B (PCR) RSV RNA Qual (PCR) SARS-CoV-2 RNA (RT-PCR) 01/12/24 01/12/24 01/12/24 05:15 05:16 06:51 MCV 83.2 MCH 28.0 MCHC 33.6 RDW 15.2 Plt Count 83 L MPV 11.9 Immature Gran % (Auto) 0.6 H Neut % (Auto) 82.4 H Lymph % (Auto) 6.8 L King % (Auto) 9.9 Eos % (Auto) 0.0 Baso % (Auto) 0.3 Lymph # (Auto) 0.7 L King # (Auto) 1.0 Eos # (Auto) 0.0 Baso # (Auto) 0.0 Abs Immat Gran (auto) 0.06 H Absolute Neuts (auto) 8.5 H Absolute Nucleated RBC 0.000 Nucleated RBC % (auto) 0.0 Anion Gap 12 Estim Creat Clear Calc 127.5 Estimated GFR > 60 POC Glucose 129 H Random Glucose 140 H Lactic Acid Calcium 8.4 D Magnesium Total Bilirubin 0.6 Direct Bilirubin AST 20 ALT 13 Alkaline Phosphatase 95 Troponin I High Sens Total Protein 6.4 L Albumin 3.3 L Lipase Influenza Type A (PCR) Influenza Type B (PCR) RSV RNA Qual (PCR) SARS-CoV-2 RNA (RT-PCR) Procedures Date of Service Date of Service: 01/12/24 Progress Note: A&P Assessment and plan (1) Incarcerated umbilical hernia: Status: Acute Plan POD #1 s/p Repair of incarcerated umbilical hernia with mesh. Doing well post op. Tolerating diet with good pain control. VSS. Abd benign with dressing intact and appropriate post op tenderness. Stable for dc from surgical standpoint. F/u in office in 1 week, educated no heavy lifting. Time Spent With Patient Time: Total time managing care of this patient today ____ minutes. Quality Stroke Does the patient have a stroke diagnosis?: No VTE Prior VTE?: No VTE Risk Level:: Medical - moderate - high VTE Device Contraindication: N/A - Device Ordered VTE Drug Contraindication: Treatment Not Indicated
[2024-01-12] MEDS: Lactated Ringers 1,000 ML 125 ML IVCONT (08:03)
--- NOTE | 2024-01-12 09:02 | MHC.CM.PN ---
CM met with Patient at bedside. Patient lives in an apartment with his Sister and his Mother (he is one of his Mother's Caregivers). Patient required no services nor DME [employer] and CM has initiated and will follow for dc planning. CM assisted Patient with the completion of a HCP; he has named his Son/Alexis as his Agent. PCP/GUIDE TRAVEL is Juli Valdez.
[2024-01-12 11:00] LABS: Glucose, Whole Blood 140 mg/dL (60-115)
--- NOTE | 2024-01-12 12:03 | P.DS_ITS ---
DS: Providers Provider Date of Service: 01/12/24 Date of admission: 01/11/24 20:58 Date of discharge: 01/12/24 Primary care physician: Juli Valdez CNP DS: Diagnosis Discharge Diagnosis (1) Incarcerated umbilical hernia: Status: Acute (2) Diabetes type 2, controlled: Status: Acute (3) Hyperlipidemia: Status: Acute DS: Summary Hospital Course Hospital Course: 53-year-old male with known history of diabetes type 2 managed on metformin along with hyperlipidemia and hypertension presents with approximately 2 days of nausea and vomiting a bile colored liquid. He states a history of an umbilical hernia and now over the last 2 days this has increased in size and is more painful. He denies fever chills shortness of breath. CT of abdomen and pelvis done in the ER demonstrates an obstructing umbilical hernia containing a loop of small bowel along with inflammatory changes Hospital Course Patient admitted to general medical floor on the day of admission and taken to surgery later that afternoon. Please see Dr. Vasquez's notes for details. Surgery was uneventful and his postoperative course was uneventful as well. At this point in time he is medically acceptable for discharge and surgery is in agreement. Will follow up with Dr. Vasquez as outlined Time Attestation Discharge Coordination Time (in mins): 35 Quality: Safe Use of Opioids Does Pt have an Active Cancer Diagnosis on the Problem List?: No Quality: Stroke Does the patient have a stroke diagnosis?: No Physical Exam Vital Signs: Vital Signs: Last Vital Signs Temp 97.1 F 01/12/24 07:07 Pulse 60 01/12/24 07:07 Resp 20 01/12/24 07:07 BP 125/64 01/12/24 07:07 Pulse Ox 95 01/12/24 07:07 O2 Del Method Room Air 01/12/24 07:07 O2 Flow Rate 2 01/11/24 15:48 BMI result Body Mass Index 37.3 Const: Other: Awake alert no acute distress Resp: Other: Clear to auscultation bilaterally no rales rhonchi wheezes Cardio: Other: No S4; positive S1-S2; no S3 murmurs rubs or gallops GI: Other: Obese distended tender periumbilical. Quiet bowel sounds Extrem: Other: No edema bilaterally DS: Data Data Completed and Pending Pending studies at discharge: Pending at discharge 01/11/24 14:53 Surgical [PTH] Routine Labs on day of discharge: Laboratory Results - last 24 hr 01/11/24 01/11/24 01/11/24 13:33 13:52 21:44 WBC RBC Hgb Hct MCV MCH MCHC RDW Plt Count MPV Immature Gran % (Auto) Neut % (Auto) Lymph % (Auto) [place] % (Auto) Eos % (Auto) Baso % (Auto) Lymph # (Auto) [place] # (Auto) Eos # (Auto) Baso # (Auto) Abs Immat Gran (auto) Absolute Neuts (auto) Absolute Nucleated RBC Nucleated RBC % (auto) Sodium Potassium Chloride Carbon Dioxide Anion Gap BUN Creatinine Estim Creat Clear Calc Estimated GFR POC Glucose 147 H 193 H Random Glucose Calcium Total Bilirubin AST ALT Alkaline Phosphatase Troponin I High Sens < 2.7 Total Protein Albumin 01/12/24 01/12/24 01/12/24 05:15 05:16 06:51 WBC 10.3 RBC 4.47 L Hgb 12.5 L Hct 37.2 L MCV 83.2 MCH 28.0 MCHC 33.6 RDW 15.2 Plt Count 83 L MPV 11.9 Immature Gran % (Auto) 0.6 H Neut % (Auto) 82.4 H Lymph % (Auto) 6.8 L [place] % (Auto) 9.9 Eos % (Auto) 0.0 Baso % (Auto) 0.3 Lymph # (Auto) 0.7 L [place] # (Auto) 1.0 Eos # (Auto) 0.0 Baso # (Auto) 0.0 Abs Immat Gran (auto) 0.06 H Absolute Neuts (auto) 8.5 H Absolute Nucleated RBC 0.000 Nucleated RBC % (auto) 0.0 Sodium 137 Potassium 3.8 Chloride 105 Carbon Dioxide 24 Anion Gap 12 BUN 14 Creatinine 0.76 Estim Creat Clear Calc 127.5 Estimated GFR > 60 POC Glucose 129 H Random Glucose 140 H Calcium 8.4 D Total Bilirubin 0.6 AST 20 ALT 13 Alkaline Phosphatase 95 Troponin I High Sens Total Protein 6.4 L Albumin 3.3 L 01/12/24 10:57 WBC RBC Hgb Hct MCV MCH MCHC RDW Plt Count MPV Immature Gran % (Auto) Neut % (Auto) Lymph % (Auto) [place] % (Auto) Eos % (Auto) Baso % (Auto) Lymph # (Auto) [place] # (Auto) Eos # (Auto) Baso # (Auto) Abs Immat Gran (auto) Absolute Neuts (auto) Absolute Nucleated RBC Nucleated RBC % (auto) Sodium Potassium Chloride Carbon Dioxide Anion Gap BUN Creatinine Estim Creat Clear Calc Estimated GFR POC Glucose 140 H Random Glucose Calcium Total Bilirubin AST ALT Alkaline Phosphatase Troponin I High Sens Total Protein Albumin Discharge Plan Discharge Anticipated Discharge Date/Time: 01/12/24 12:01 Patient Disposition: Home, Self-Care Discharge Diagnosis: Incarcerated umbilical hernia Referrals: Juli Valdez CNP [Primary Care Provider] - 1 Week Horacio Vasquez MD [Physician] - 1 Week Discharge Medications: Continued atorvastatin 40 mg tablet 40 mg PO DAILY levothyroxine 175 mcg tablet 175 mcg PO DAILY pantoprazole 40 mg tablet,delayed release (DR/EC) 40 mg PO BID metformin 1,000 mg tablet 1,000 mg PO BID gabapentin 300 mg capsule 300 mg PO TID furosemide 20 mg tablet 20 mg PO TID albuterol sulfate [Ventolin HFA] 90 mcg/actuation HFA aerosol inhaler 2 puff INHALATION Q6H PRN (Reason: Wheezing) spironolactone 50 mg tablet 50 mg PO DAILY midodrine 10 mg tablet 10 mg PO BID escitalopram oxalate 20 mg tablet 20 mg PO DAILY Discharge Orders: Discharge Order (Routine); Ordered 01/12/24 Ordered By: Juan José Mendoza Diet: Advance to usual diet Activity on Discharge: No heavy lifting Stand Alone Forms: Patient Portal Discharge page Activity Restrictions/Additional Instructions: If the incision area is tender, you may apply an ice pack for short intervals (No more than 20 minutes on, followed by at least 20 minutes off). Do not apply heat. Do not use creams, lotions, or topical antibiotics. Ok to shower. Remove clear dressings 3 days following your procedure. You have steri strips (small white cloth strips) covering your incision- these will fall off ~1 week. No heavy lifting (>10lbs) or strenuous activity! Take Colace 100 mg every day as needed for constipation. Follow up in office with Dr. Vasquez in 1 week. ([phone]) Call Your Doctor If: -Your temperature exceeds 101.5? F -You experience excessive pain or swelling -You have an unexpected reaction to medication -You have excessive bleeding -You experience continued vomiting/nausea -Your incision begins to separate -Your incision shows signs of infection such as increased redness, swelling, excessive pain, drainage (light blood or clear fluid is normal) or heat Care Plan Goals: Resume all pre-hospital medicines Health Concerns: Further instructions as per surgery Plan of Treatment: Follow-up as per surgery Assessment: See discharge summary
--- NOTE | 2024-01-12 12:03 | HO.POSTANES ---
Post Anesthesia Evaluation Post Anesthesia Evaluation Date of Service: 01/12/24 Vital Signs: Vital Signs Temp Pulse Resp BP Pulse Ox O2 Del Method 01/12/24 07:07 97.1 F 60 20 125/64 95 Room Air 01/12/24 03:19 97.2 F 54 18 124/68 97 Room Air Anesthesia: General Endotracheal-GETA Mental Status: Awake Pain Control: Satisfactory Nausea/Vomiting: None Hydration: Adequate Anesthesia-Related Issues: No Anes. Related Issues
--- NOTE | 2024-01-12 12:05 | MHC.CM.PN ---
Patient has been medically cleared for dc to home, self care.
== END 2024-01-12 12:14 | disposition home or self-care (01) | DRG 228 ==
LOC: HO.ED 11:28 → HO.SSS 11:53 → HO.SSSA 21:00 → HO.IMC 21:16
PROVIDERS: Physician Assistant Medical; Surgery; Absent Provider Hospitalist; Admitting Provider Hospitalist; Emergency Provider Emergency Medicine; PCP Nurse Practitioner Family; Visit Provider Hospitalist
PROC: 0WUF0JZ Supplement Abdominal Wall with Synthetic Substitute, Open Approach (ICD-10-PCS; principal; 2024-01-11 19:50)
DX: K42.0 Umbilical hernia with obstruction, without gangrene (principal); E78.5 Hyperlipidemia, unspecified; I10 Essential (primary) hypertension; Z79.84 Long term (current) use of oral hypoglycemic drugs; Z87.891 Personal history of nicotine dependence; Z79.899 Other long term (current) drug therapy
CPT/HCPCS: 0241U; 36415; 74177; 80048; 80053; 80076; 82947; 83605; 83690; 83735; 84484; 85025; 88302; 93005; 99285; C1781; C9113; J0690; J1100; J2270; J2405; J2704; J2795; J3010; J7120; Q9967

== ENCOUNTER → 2024-01-11 11:53 | Outpatient (BNV) | payer OTHER, SELFPAY | PROVIDERS: Emergency Provider Emergency Medicine; PCP Nurse Practitioner Family; Visit Provider Hospitalist | DX: K42.0 Umbilical hernia with obstruction, without gangrene (principal); E11.9 Type 2 diabetes mellitus without complications; E78.5 Hyperlipidemia, unspecified | CPT/HCPCS: 99223; 99239 ==

== ENCOUNTER → 2024-01-11 11:53 | Outpatient (BNV) | payer OTHER, SELFPAY | PROVIDERS: Emergency Provider Emergency Medicine; PCP Nurse Practitioner Family; Visit Provider Surgery | DX: K42.0 Umbilical hernia with obstruction, without gangrene (principal) | CPT/HCPCS: 49594; 99222; 99231 ==

== ENCOUNTER → 2024-01-11 12:02 | Outpatient (BNV) | payer OTHER, SELFPAY | PROVIDERS: Emergency Provider Emergency Medicine; PCP Nurse Practitioner Family; Visit Provider Internal Medicine | DX: Z01.818 Encounter for other preprocedural examination (principal) | CPT/HCPCS: 93010 ==

== ENCOUNTER 2024-01-26 11:22 | Outpatient (AMB) | payer OTHER, SELFPAY ==
--- NOTE | 2024-01-26 11:31 | A.OFFVIS_ITS ---
Intake Vital Signs 01/26/24 11:34 Height 5 ft 6 in Weight 231 lb 7.766 oz BMI 37.4 BP 120/72 Blood Pressure Location Lt brachial Position Sitting Intake Visit Reasons: S/P umbilical hernia with mesh Intake Note: Patient is seen in office for post op assessment post umbilical hernia repair. Pt c/o: admits to sore, tender and bruise, some hardness in the area Op:01/11/24 Allergist/Immunologist Physician Required: No Accompanied by: Self / Same As Patient Allergies No Known Allergies Allergy (Verified 01/26/24 11:36) HPI HPI Comments History of Present Illness Details 53-year-old male patient returning 1 wee k following repair of a large umbilical hernia with mesh. He feels well but did report some pain following the procedure. He managed the pain without any narcotic. He does note some swelling and bruising in the incision and lower abdomen. He denies any fever or chills. He is eating well and denies any changes in his bowels. [facility] Medical History (Updated 01/11/24 @ 13:42 by Linda Aparicio) Kidney stones Stage 1 chronic kidney disease Cirrhosis Hyperlipidemia Diabetes type 2, controlled Incarcerated umbilical hernia Surgical History Hx of umbilical hernia repair (01/11/24) H/O knee surgery History of surgery on lower extremity H/O elbow surgery H/O Spinal surgery Social History Household Members: Family Housing: Apartment Do you presently have visiting nurse or other home services: No Patient Tobacco Use Status: Former Tobacco user Quit Date: 11/2023 Tobacco use type: Cigarette Cigarette Packs Per Day: 8 Cigarettes Per Day: 160.0 Years Smoked: 18 Substance Use Type: Marijuana service: No Physical Exam Vital Signs: Last Vital Signs BP 120/72 01/26/24 11:34 BMI result Body Mass Index 37.4 Const General: comfortable Nutritional Appearance: obese Orientation/consciousness: patient oriented x3 Resp Effort & Inspection: normal respiratory effort GI Other: Well-healed umbilical incision with some underlying swelling. No changes noted with Valsalva maneuvers. Large area of ecchymosis located below the incision. No evidence of wound infection. Neuro General: patient oriented x3 Assessment & Plan Assessment & Plan (1) Incarcerated umbilical hernia: Code(s): K42.0 - Umbilical hernia with obstruction, without gangrene Plan 53-year-old male patient status post repair of an umbilical hernia with mesh. His wounds are clean with some surrounding ecchymosis but remain intact. He should continue to avoid lifting greater than 10 lb and return in 1 month for follow-up examination. Coding Level of Care Code Global (86981) Diagnoses Incarcerated umbilical hernia K42.0
[2024-01-26 11:34] VITALS: BP 120/72; BMI 37.4
== END 2024-01-26 11:39 | disposition home or self-care (01) ==
PROVIDERS: PCP Nurse Practitioner Family; Visit Provider Surgery
DX: K42.0 Umbilical hernia with obstruction, without gangrene (principal)
CPT/HCPCS: 99212

== ENCOUNTER → 2024-01-26 11:22 | Outpatient (BNVA) | payer OTHER, SELFPAY | PROVIDERS: PCP Nurse Practitioner Family; Visit Provider Surgery | DX: K42.0 Umbilical hernia with obstruction, without gangrene (principal) | CPT/HCPCS: 99212 ==

== ENCOUNTER 2024-02-25 14:43 | Outpatient (AMB) | payer OTHER, SELFPAY ==
--- NOTE | 2024-02-25 14:45 | A.OFFVIS_ITS ---
Vital Signs 02/25/24 14:54 Height 5 ft 6 in Weight 227 lb BMI 36.6 BP 115/60 Blood Pressure Location Lt brachial Position Sitting Pulse 72 Intake Visit Reasons: one month post umbilical hernia with mesh Intake Note: Patient is seen in office for one month, post umbilical hernia repair. Pt c/o: minimal discharge in the area, denies any other concerns Gang Mower Operator Required: No Accompanied by: Self / Same As Patient Allergies No Known Allergies Allergy (Verified 01/26/24 11:36) HPI Comments Details: Mr. Herr returns 1 month following repair of an incarcerated umbilical hernia with mesh. He generally feels well and denies any pain associated with his incision. He does have occasional discharge from the umbilicus. He denies fever or chills. [facility] Medical History (Updated 02/03/24 @ 00:02 by Hima Kemp) Kidney stones Stage 1 chronic kidney disease Cirrhosis Hyperlipidemia Diabetes type 2, controlled Incarcerated umbilical hernia Surgical History Hx of umbilical hernia repair (01/11/24) H/O knee surgery History of surgery on lower extremity H/O elbow surgery H/O Spinal surgery Social History Household Members: Family Housing: Apartment Do you presently have visiting nurse or other home services: No Patient Tobacco Use Status: Former Tobacco user Quit Date: 11/2023 Tobacco use type: Cigarette Cigarette Packs Per Day: 8 Cigarettes Per Day: 160.0 Years Smoked: 18 Substance Use Type: Marijuana service: No Physical Exam Vital Signs: Last Vital Signs Pulse 72 02/25/24 14:54 BP 115/60 02/25/24 14:54 BMI result Body Mass Index 36.6 Const General: comfortable Nutritional Appearance: obese Orientation/consciousness: patient oriented x3 Resp Effort & Inspection: normal respiratory effort GI Other: Well-healed umbilical incision with some underlying swelling. No changes noted with Valsalva maneuvers. A small amount of clear liquid is noted at the base of the umbilicus below the incision. This may indicate an underlying superficial skin infection. Neuro General: patient oriented x3 Assessment & Plan Assessment & Plan (1) Incarcerated umbilical hernia: Code(s): K42.0 - Umbilical hernia with obstruction, without gangrene Category: Medical Plan I will start patient on Keflex 500 mg p.o. t.i.d. for the next 10 days. He will return in 2 weeks for follow-up examination. He may resume normal activity at this time. Medications: New cephalexin 500 mg PO Q8H 10 days 30 caps 0RF Coding Level of Care Code Global (09924) Diagnoses Incarcerated umbilical hernia K42.0
[2024-02-25 14:54] VITALS: BP 115/60; PULSE 72; BMI 36.6
== END 2024-02-25 15:04 | disposition home or self-care (01) ==
PROVIDERS: PCP Nurse Practitioner Family; Visit Provider Surgery
DX: K42.0 Umbilical hernia with obstruction, without gangrene (principal); Z09 Encounter for follow-up examination after completed treatment for conditions other than malignant neoplasm
CPT/HCPCS: 99213

== ENCOUNTER → 2024-02-25 14:43 | Outpatient (BNVA) | payer OTHER, SELFPAY | PROVIDERS: PCP Nurse Practitioner Family; Visit Provider Surgery | DX: K42.0 Umbilical hernia with obstruction, without gangrene (principal) | CPT/HCPCS: 99212 ==

== ENCOUNTER 2024-03-10 09:15 | Outpatient (AMB) | payer OTHER, SELFPAY ==
--- NOTE | 2024-03-10 09:17 | A.OFFVIS_ITS ---
Vital Signs 03/10/24 09:22 Height 5 ft 6 in Weight 225 lb 6 oz BMI 36.4 BP 114/58 L Blood Pressure Location Lt brachial Position Sitting Pulse 74 Intake Visit Reasons: 2 wks post umbilical hernia with mesh Intake Note: Patient is seen in office for 2 weeks follow up visit, post umbilical hernia repair. Pt c/o: denies any discharge or concerns, still taking antbx has a couple more left Lead Manufacturing Technician Required: No Accompanied by: Self / Same As Patient Allergies No Known Allergies Allergy (Verified 03/10/24 09:23) HPI Comments Details: Patient returns feeling much improved. He denies any pain, redness or discharge from the incision. He continues the antibiotics as prescribed and denies any ill side effects. [facility] Medical History (Updated 02/03/24 @ 00:02 by Hima Kemp) Kidney stones Stage 1 chronic kidney disease Cirrhosis Hyperlipidemia Diabetes type 2, controlled Incarcerated umbilical hernia Surgical History Hx of umbilical hernia repair (01/11/24) H/O knee surgery History of surgery on lower extremity H/O elbow surgery H/O Spinal surgery Social History Household Members: Family Housing: Apartment Do you presently have visiting nurse or other home services: No Patient Tobacco Use Status: Former Tobacco user Quit Date: 11/2023 Tobacco use type: Cigarette Cigarette Packs Per Day: 8 Cigarettes Per Day: 160.0 Years Smoked: 18 Substance Use Type: Marijuana service: No Physical Exam Const General: healthy appearing Nutritional Appearance: well nourished Orientation/consciousness: patient oriented x3 GI Other: Umbilical incision is clean dry, and intact without redness or discharge. No seroma or hematoma is appreciated. Neuro General: patient oriented x3 Assessment & Plan Assessment & Plan (1) Incarcerated umbilical hernia: Code(s): K42.0 - Umbilical hernia with obstruction, without gangrene Category: Medical Plan 53-year-old male patient status post repair of an incarcerated umbilical hernia with mesh. He tolerated the procedure well his wounds are healing nicely. He may resume normal activity without restriction and should follow up as needed. Coding Level of Care Code Global (06765) Diagnoses Incarcerated umbilical hernia K42.0
[2024-03-10 09:22] VITALS: BP 114/58; PULSE 74; BMI 36.4
== END 2024-03-10 09:24 | disposition home or self-care (01) ==
PROVIDERS: PCP Nurse Practitioner Family; Visit Provider Surgery
DX: K42.0 Umbilical hernia with obstruction, without gangrene (principal)
CPT/HCPCS: 99212

== ENCOUNTER → 2024-03-10 09:15 | Outpatient (BNVA) | payer OTHER, SELFPAY | PROVIDERS: PCP Nurse Practitioner Family; Visit Provider Surgery | DX: Z09 Encounter for follow-up examination after completed treatment for conditions other than malignant neoplasm (principal); Z87.19 Personal history of other diseases of the digestive system | CPT/HCPCS: 99212 ==

== ENCOUNTER 2024-06-07 08:56 | Outpatient (REF) | payer OTHER, SELFPAY | END 2024-06-07 08:57 | disposition home or self-care (01) | LOC: HO.SH 08:56 | PROVIDERS: Visit Provider Nurse Practitioner Family | DX: Z01.118 Encounter for examination of ears and hearing with other abnormal findings (principal); H90.3 Sensorineural hearing loss, bilateral | CPT/HCPCS: 92557; 92567 ==

== ENCOUNTER 2024-06-17 13:54 | Outpatient (REF) | payer OTHER, SELFPAY | END 2024-06-17 13:55 | disposition home or self-care (01) | LOC: HO.HAP 13:54 | PROVIDERS: Visit Provider Nurse Practitioner Family | DX: Z46.1 Encounter for fitting and adjustment of hearing aid (principal); H90.3 Sensorineural hearing loss, bilateral | CPT/HCPCS: 92591 ==

== ENCOUNTER 2024-06-28 13:02 | Emergency (ER) | payer OTHER, SELFPAY ==
--- NOTE | ~2024-06-28 | XR_ITS ---
EXAMINATION: XR HAND/WRIST, RIGHT CLINICAL INFORMATION: Hand pain COMPARISON: None available. TECHNIQUE: PA, lateral, and oblique views of the right hand and wrist. FINDINGS: There is moderate osteopenia with subtle cystic change in the scaphoid and capitate with mild narrowing of the right CMC joint. No fracture or dislocation or destructive process. The MCP joints appear preserved. XR/XR hand wrist RT IMPRESSION: No acute findings. Query mild arthritic change. Electronically signed by: Dc Stacy MD 06/28/2024 03:11 PM EDT
--- NOTE | ~2024-06-28 | CT_ITS ---
EXAMINATION: CT wrist RT wo IV con (accession [id number]) CT hand RT wo IV con (accession [id number]) INDICATION: pain s/p fall. Limited range of motion. COMPARISON: 06/28/2024 TECHNIQUE: Multidetector volumetric imaging was obtained through the right hand and wrist without contrast. Multiplanar reformatted images in coronal and sagittal orientations were submitted. This CT examination was performed using dose optimization techniques as appropriate, variously including the following: *Automated exposure control *Adjustment of mA and/or kV according to patient size (this includes techniques or standardized protocols for targeted exams where dose is matched to indication/reason for exam; i.e. extremities or head) *Use of iterative reconstruction technique DLP: 149 mGy-cm FINDINGS: No acute fracture or malalignment. The distal radius and scaphoid, in particular, appear intact without fracture lines. No avulsion fractures of the triquetrum. The hook of the hamate and trapezial ridge are intact. Metacarpals and phalanges are also intact. Alignment appears normal. Carpal joints are normal. Small intraosseous cysts are present in the proximal margin of the capitate and distal pole of the scaphoid without clinical significance. There is mild osteoarthritis in multiple interphalangeal joints, most likely the thumb interphalangeal joint, characterized by small marginal osteophytes, joint space narrowing, and acute cortical irregularity. No fractures. No acute soft tissue abnormalities are identified. The tendons are grossly intact. No subcutaneous gas or vertebral radiodense foreign bodies. CT/CT wrist RT wo IV con IMPRESSION: 1. No acute fracture or malalignment in the right hand and wrist. 2. 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 Electronically signed by: Levy Ovalle MD 06/28/2024 04:03 PM EDT
--- NOTE | ~2024-06-28 | CT_ITS ---
EXAMINATION: CT wrist RT wo IV con (accession [id number]) CT hand RT wo IV con (accession [id number]) INDICATION: pain s/p fall. Limited range of motion. COMPARISON: 06/28/2024 TECHNIQUE: Multidetector volumetric imaging was obtained through the right hand and wrist without contrast. Multiplanar reformatted images in coronal and sagittal orientations were submitted. This CT examination was performed using dose optimization techniques as appropriate, variously including the following: *Automated exposure control *Adjustment of mA and/or kV according to patient size (this includes techniques or standardized protocols for targeted exams where dose is matched to indication/reason for exam; i.e. extremities or head) *Use of iterative reconstruction technique DLP: 149 mGy-cm FINDINGS: No acute fracture or malalignment. The distal radius and scaphoid, in particular, appear intact without fracture lines. No avulsion fractures of the triquetrum. The hook of the hamate and trapezial ridge are intact. Metacarpals and phalanges are also intact. Alignment appears normal. Carpal joints are normal. Small intraosseous cysts are present in the proximal margin of the capitate and distal pole of the scaphoid without clinical significance. There is mild osteoarthritis in multiple interphalangeal joints, most likely the thumb interphalangeal joint, characterized by small marginal osteophytes, joint space narrowing, and acute cortical irregularity. No fractures. No acute soft tissue abnormalities are identified. The tendons are grossly intact. No subcutaneous gas or vertebral radiodense foreign bodies. CT/CT hand RT wo IV con IMPRESSION: 1. No acute fracture or malalignment in the right hand and wrist. 2. 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 Electronically signed by: eLvy Ovalle MD 06/28/2024 04:03 PM EDT
[2024-06-28 13:13] VITALS: BP 109/68; PULSE 80; RESP 18; TEMP 36.6; O2SAT 98; BMI 37.0
--- NOTE | 2024-06-28 13:14 | ED_ITS ---
HPI - General Adult General Chief complaint: Extremity Injury, Upper Stated complaint: R hand inj Time Seen by Provider: 06/28/24 13:48 Source: patient and RN notes reviewed Mode of arrival: ambulatory Limitations: no limitations History of Present Illness ED Provider: Becki Miguel PA-C HPI narrative: This is a 54-year-old male, with a history of chronic kidney disease, liver cirrhosis, high cholesterol, and diabetes, who presents emergency department with complaints of right wrist and right hand pain status post mechanical fall which occurred 2 weeks ago. Patient states that while he was in a store he accidentally tripped and fell, he is unsure how he landed however states that he injured his right hand and wrist and has had difficulty moving his right hand and wrist secondary to pain. He states that he has not been able to be evaluated as he has had multiple deaths and has been working and has been unable to be medically evaluated. He states pain occurs with range of motion of the right hand and wrist. Denies history of injury of this in the past. He denies any fevers or chills. No other complaints or concerns this time. MD complaint: Right wrist/hand pain Onset (ago): week(s) Radiation: non-radiation Quality: aching Pain Consistency: constant Relieving factors: none Exacerbating factors: none Associated symptoms: denies other symptoms Treatments prior to arrival: none Related Data Home Medications ?Medication ?Instructions ?Recorded ?Confirmed albuterol sulfate 90 mcg/actuation 2 puff inhalation Q6H PRN Wheezing 01/11/24 01/11/24 aerosol inhaler (Ventolin HFA) atorvastatin 40 mg tablet 40 mg PO DAILY 01/11/24 01/11/24 escitalopram oxalate 20 mg tablet 20 mg PO DAILY 01/11/24 01/11/24 furosemide 20 mg tablet 20 mg PO TID 01/11/24 01/11/24 gabapentin 300 mg capsule 300 mg PO TID 01/11/24 01/11/24 levothyroxine 175 mcg tablet 175 mcg PO DAILY 01/11/24 01/11/24 metformin 1,000 mg tablet 1,000 mg PO BID 01/11/24 01/11/24 midodrine 10 mg tablet 10 mg PO BID 01/11/24 01/11/24 pantoprazole 40 mg tablet,delayed 40 mg PO BID 01/11/24 01/11/24 release spironolactone 50 mg tablet 50 mg PO DAILY 01/11/24 01/11/24 Previous Rx's ?Medication ?Instructions ?Recorded cephalexin 500 mg capsule 500 mg PO Q8H 10 days #30 caps 02/25/24 Allergies Allergy/AdvReac Type Severity Reaction Status Date / Time No Known Allergies Allergy Verified 06/28/24 13:17 Review of Systems Review of Systems: Yes all other systems are reviewed and are negative Constitutional: Constitutional: Reports as per [facility] Past Medical History Attestation statement: The following information was validated with the patient. Medical History Kidney stones Stage 1 chronic kidney disease Cirrhosis Hyperlipidemia Diabetes type 2, controlled Incarcerated umbilical hernia Surgical History Hx of umbilical hernia repair (01/11/24) H/O knee surgery History of surgery on lower extremity H/O elbow surgery H/O Spinal surgery Social History Social History Household Members: Family Housing: Apartment Do you presently have visiting nurse or other home services: No Patient Tobacco Use Status: Former Tobacco user Tobacco use type: Cigarette Cigarette Packs Per Day: 8 Cigarettes Per Day: 160.0 Years Smoked: 18 Substance Use Type: Marijuana Advance Directives: Yes Advance Directives on File: Yes Advance Directives Date on File: 01/13/24 Do you have a plan to hurt others: No Plan service: No Physical Exam ED Vital Signs: Vital Signs - 24 hr 06/28/24 13:13 06/28/24 16:39 Temperature 98 F 98 F Pulse Rate 80 80 Respiratory Rate 18 18 Blood Pressure 109/68 109/68 Pulse Oximetry 98 98 Oxygen Delivery Method Room Air Room Air BMI result Body Mass Index 37.0 Const General: cooperative, comfortable and no acute distress Orientation/consciousness: patient oriented x3 Limitations: no limitations HENMT Head: Yes normal to inspection, Yes normocephalic and Yes atraumatic Ears: hearing grossly normal bilaterally General nose exam: Normal external nose present Face and sinus: Yes normal facial exam Mouth: Normal oral and palatal mucosa present, oropharynx normal and moist mucous membranes Throat: Yes posterior oropharynx normal Eyes General: appearance normal, both eyes and all related structures Eyelids: Yes eyelids normal Conjunctivae: conjunctivae normal Sclerae: sclerae normal Pupils: Equal, round and reactive pupils present EOM: EOMs intact bilaterally Neck Neck: Yes normal visual inspection, Yes full ROM and Yes no lymphadenopathy Lymphatic: no lymphadenopathy noted Chest Chest palpation & inspection: normal inspection of the chest Resp Effort & Inspection: normal respiratory effort and able to speak in complete sentences Auscultation: clear to auscultation bilaterally, no crackles, no rales, no rhonchi and no wheezes Cardio Rate: regular rate Rhythm: regular rhythm Heart sounds: S1 normal heart sound present and S2 normal heart sound present GI Inspection: Yes normal to inspection Skin General skin exam: no rashes or lesions noted Trauma: no lacerations or abrasions Wounds: no wounds Neuro General: patient oriented x3 and moves all extremities Cranial nerves: Yes Equal, round and reactive pupils present Extrem Other: Right hand and wrist with diffuse tenderness to palpation throughout, unable to pronate and supinate without pain. Unable to oppose thumb to all digits. Radial pulse 2+. No overlying skin changes. General: Yes normal to inspection Right upper extremity: normal to inspection Left upper extremity: normal to inspection Right lower extremity: normal to inspection Left lower extremity: normal to inspection Course Course Course Narrative: RME, this is a rapid medical exam performed by Scott Nickerson please refer to primary provider for complete H&P- 54-year-old male presents for evaluation of right hand and wrist pain. Patient reports that he fell about 3 weeks ago but was never seen due to a busy schedule. He reports the pain is a 9.5 and he is unable to sleep at night. He has pain in the right hand and wrist that radiates up towards his right forearm. Plan for x-rays. Reevaluation(s) Reevaluation #1: x-ray revealing mild osteopenia, no acute fracture. Given extreme limitation of hand and wrist, hand CT and wrist CT was obtained, revealing no abnormalities. Advised patient to follow-up with PCP. He understands and agrees with plan. Patient stable for discharge. Medical Decision Making Medical Decision Making MDM Narrative: This is a 54-year-old male who presents emergency department with complaints of right hand and wrist pain status post mechanical fall which occurred on June 07. On arrival vital signs within normal limits. Patient with extreme limited range of motion of the wrist and hand, concerning for fracture and or ligamentous injury. Less likely septic arthritis as patient has no overlying skin changes or warmth. Plan: X-ray Differential Diagnosis Differential Diagnoses: The differential diagnosis associated with the presentation includes See above Radiology Impression Discussion of test interpretation with radiology: I have reviewed the radiologist's reading. Radiologist Impression: CT/CT hand RT wo IV con IMPRESSION: 1. No acute fracture or malalignment in the right hand and wrist. 2. 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 Electronically signed by: Levy Ovalle MD 06/28/2024 04:03 PM EDT RP Dictated By: Levy Ovalle MD Discharge Plan Discharge Clinical Impression: Acute wrist pain, Osteoarthritis of right wrist Patient Disposition: Home, Self-Care Instructions: Wrist Injury (ED), Arthralgia (ED) Additional Instructions: You were seen in the emergency department due to right wrist pain. Your images of your right wrist show arthritis, there are no broken bones in your wrist. Gentle range of motion of the wrist can help. Heat or ice. Please rest, use wrist splint for comfort, and call the orthopedic team tomorrow for follow-up. If any new or worsening symptoms occur including but not limited to fevers, chills, chest pain, shortness of breath, please return for re-evaluation. Prescriptions: No Action atorvastatin 40 mg tablet 40 mg PO DAILY levothyroxine 175 mcg tablet 175 mcg PO DAILY pantoprazole 40 mg tablet,delayed release (DR/EC) 40 mg PO BID metformin 1,000 mg tablet 1,000 mg PO BID gabapentin 300 mg capsule 300 mg PO TID furosemide 20 mg tablet 20 mg PO TID albuterol sulfate [Ventolin HFA] 90 mcg/actuation HFA aerosol inhaler 2 puff INHALATION Q6H PRN (Reason: Wheezing) spironolactone 50 mg tablet 50 mg PO DAILY midodrine 10 mg tablet 10 mg PO BID escitalopram oxalate 20 mg tablet 20 mg PO DAILY cephalexin 500 mg capsule 500 mg PO Q8H 10 Days Qty: 30 0RF Referrals: [facility] [place] Orthopedic Surgeons [Provider Group] Interventions: ED Discharge Assessment Last Done: 06/28/24 16:39 Discharge Date/Time: 06/28/24 16:40 Print Language: Indonesian
[2024-06-28 16:39] VITALS: BP 109/68; PULSE 80; RESP 18; TEMP 36.6; O2SAT 98
== END 2024-06-28 16:40 | disposition home or self-care (01) ==
PROVIDERS: Emergency Provider Emergency Medicine; PCP Nurse Practitioner Family
DX: M19.031 Primary osteoarthritis, right wrist (principal); M25.531 Pain in right wrist; Z79.899 Other long term (current) drug therapy
CPT/HCPCS: 73110; 73130; 73200; 99282; 99284

== ENCOUNTER 2024-07-05 09:23 | Outpatient (AMB) | payer OTHER, SELFPAY ==
--- NOTE | 2024-07-05 09:24 | A.OFFVIS_ITS ---
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 Patient reports he was in a store when he accidentally tripped and fell. He is unsure how he landed however states that he injured his right hand and wrist from this fall. Limited ROM in his wrist due to this injury and describes his pain as sharp shooting up to his right elbow also accompanied by tingling. He says his hand feels cold all the time. X-rays were done on 06/28/2024 at his ED visit. He was provided with a brace in the ED, says it relieves him for a short period of time. He reports he is unable to take Tylenol and ibuprofen due to his liver. 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 The patient reports that, on that date, he fell while in the supermarket, onto his right hand and wrist. Patient reports that, since that time, he has been experiencing very significant pain in the right hand, wrist, and radiating up to the elbow. The patient also reports that he has been experiencing numbness and tingling in the middle and ring fingers since date of injury. Patient reports that he was previously evaluated in the emergency department, where both x-rays and CT scan were obtained, revealing no fracture or acute bony abnormality, but significant arthritis of the right wrist. Patient reports that he still experiencing constant numbness in the right middle and ring fingers, and this is where his discomfort is worst, but he also states that he has had severely limited range of motion since date of injury, and he is unable to make a closed fist. No other acute complaints or concerns at this time. [facility] Medical History Kidney stones Stage 1 chronic kidney disease Cirrhosis Hyperlipidemia Diabetes type 2, controlled Incarcerated umbilical hernia Surgical History Hx of umbilical hernia repair (01/11/24) H/O knee surgery History of surgery on lower extremity H/O elbow surgery H/O Spinal surgery Social History Household Members: Family Housing: Apartment Do you presently have visiting nurse or other home services: No Patient Tobacco Use Status: Current everyday Tobacco user Tobacco use type: Cigarette Cigarette Packs Per Day: 8 Cigarettes Per Day: 160.0 Years Smoked: 18 Substance Use Type: Marijuana Advance Directives Date on File: 01/13/24 service: No Review of Systems Const All systems reviewed & are unremarkable except as noted in HPI and below Physical Exam Extrem Other: Patient is alert, oriented, and in no acute distress. Neuro: Patient reports no sensation to the tip of the right middle finger or the radial aspect of the right ring finger Patient reports normal sensation to the ulnar aspect of the right ring finger Normal sensation of the tips of all of the digits of the right hand at this time Vascular: Cap refill brisk Pain: Patient reports mild tenderness to palpation about the right wrist Patient reports very significant discomfort over the dorsal MCP joints while attempting to make a closed fist Patient also has both limited flexion and extension of the right wrist ROM: Patient has very limited active range of motion of the MCP joints of the right hand, however patient is able to get much closer to making a closed fist with encouragement and help, although he reports significant pain when doing so Skin: No lacerations or abrasions. General: No ecchymosis, erythema, or evidence of infection. Mild edema of the right hand and wrist when compared to the left Psych: Appears grossly normal Affect normal Attitude cooperative Results Reviewed Results Reviewed: X-rays and CT scan obtained in the ED on 06/28/2024 and independently reviewed by me, Bob Page PA-C, demonstrate degenerative changes of the radial scaphoid and radiolunate joints, as well as mild degenerative changes throughout the carpal joints of the right wrist. CT scan also demonstrates some cystic changes in the capitate and scaphoid of the right wrist. No fracture or acute bony abnormality noted Assessment & Plan Assessment & Plan (1) Stiffness of right hand joint: Code(s): M25.641 - Stiffness of right hand, not elsewhere classified Category: Medical (2) Right wrist pain: Code(s): M25.531 - Pain in right wrist Category: Medical (3) Numbness and tingling of right hand: Code(s): R20.0 - Anesthesia of skin; R20.2 - Paresthesia of skin Category: Medical Plan 1. Numbness and tingling of right hand Symptoms constant, daily Patient is referred for EMG and nerve conduction study to assess the health of the nerves of the right upper extremity Patient is amenable to this plan Patient will follow-up after nerve conduction study for discussion of results and further treatment options 2. Stiffness of right hand 3. Pain of right wrist and hand At this time, patient is informed that he has no acute fracture or bony abnormality on x-ray, but does have arthritis in several of the joints of the right hand and wrist Patient is also educated that, due to limited use since date of injury, he is likely experiencing significant stiffness in the MCP joints of the right hand, as there is no evidence of mechanical obstruction due to being able to get close to a closed fist with encouragement and held Patient is referred to OT hand therapy at this time for strengthening, stabilization, range of motion of the right hand and wrist Patient also states that he can not take either Tylenol or ibuprofen due to cirrhosis and chronic kidney disease Patient is educated that rest, ice, elevation, and topical pain medication should will help to alleviate some of his pain Patient is amenable to this plan Patient will follow-up after nerve conduction study for results review, sooner if any acute concerns Orders: Orders OT Evaluation and Treatment Today M25.531 - Pain in right wrist, M25.641 - Stiffness of right hand, not elsewhere classified NE electromyogram (EMG) Today R20.0 - Anesthesia of skin, R20.2 - Paresthesia of skin NE nerve conduction velocity Today R20.0 - Anesthesia of skin, R20.2 - Paresthesia of skin Coding Level of Care Code New Pt Level 3 (95275) Diagnoses Stiffness of right hand joint M25.641 Right wrist pain M25.531 Numbness and tingling of right hand R20.0; R20.2
== END 2024-07-05 09:52 | disposition home or self-care (01) ==
PROVIDERS: PCP Nurse Practitioner Family
DX: M25.641 Stiffness of right hand, not elsewhere classified (principal); M25.531 Pain in right wrist; R20.0 Anesthesia of skin; R20.2 Paresthesia of skin
CPT/HCPCS: 99203

== ENCOUNTER → 2024-07-05 09:23 | Outpatient (BNVA) | payer OTHER, SELFPAY | PROVIDERS: PCP Nurse Practitioner Family | DX: Z09 Encounter for follow-up examination after completed treatment for conditions other than malignant neoplasm (principal); M19.031 Primary osteoarthritis, right wrist; M25.641 Stiffness of right hand, not elsewhere classified; M25.531 Pain in right wrist; R20.0 Anesthesia of skin; R20.2 Paresthesia of skin | CPT/HCPCS: 99202 ==

== ENCOUNTER 2024-07-12 15:09 | Outpatient (REF) | payer OTHER, SELFPAY | END 2024-07-12 15:10 | disposition home or self-care (01) | LOC: HO.HAP 15:09 | PROVIDERS: Visit Provider Internal Medicine | DX: Z46.1 Encounter for fitting and adjustment of hearing aid (principal); H90.3 Sensorineural hearing loss, bilateral | CPT/HCPCS: V5011; V5160; V5261 ==

== ENCOUNTER 2024-08-02 11:12 | Outpatient (REF) | payer OTHER, SELFPAY | END 2024-08-02 11:13 | disposition home or self-care (01) | LOC: HO.HAP 11:12 | PROVIDERS: Visit Provider Internal Medicine | DX: Z13.89 Encounter for screening for other disorder (principal) ==

== ENCOUNTER 2025-07-14 13:31 | Outpatient (AMB) | payer OTHER, SELFPAY ==
--- NOTE | 2025-07-14 13:38 | MHC.OFFVIS ---
Vital Signs 07/14/25 13:39 Height 5 ft 6 in Weight 219 lb 5.759 oz BMI 35.4 BP 100/56 L Blood Pressure Location Lt brachial Position Sitting Pulse 70 Pulse Source Pulse Oximeter Pulse Oximetry (%) 96 Oxygen Delivery Method Room Air Intake Visit Reasons: Shortness of breath Inorganic Chemist Required: No Accompanied by: Self / Same As Patient Allergies No Known Allergies Allergy (Verified 07/14/25 13:42) HPI Comments Details: The patient is here for pulmonary evaluation. The patient is a 55-year-old gentleman with a smoking history who apparently was participating in the lung cancer screening program at [facility]. In addition to that he was then given a diagnosis of hepatocellular disease with some hepatocellular lesions. Recently he did undergo a biopsy in [place]. He does not have the results as of yet. He has been very concerning anxious about the results in unfortunately started smoking more because of that. The patient also was noted to have his last CT scan through the lung cancer screening program back in October 2024. We did personally review the CAT scan together. The patient does have some minimal emphysema. Were more than that he has several nodules bilaterally measuring between 4 to 6 mm in size. The nodules indeed need follow-up since there new nodules compared to previous CAT scan said he has had. It was considered a rads 3 and he was supposed to have a CAT scan around May. Will going to go ahead and reschedule CAT scan at this time to follow-up with the nodules. Unfortunately he has continues to smoke cigarettes. He is willing to use a patch and also provide him with the Nicorette gum for cravings. Knows that he needs to quit just to improve his respiratory capacity. As far as his CAT scan we also personally reviewed the fact that he has significant coronary artery calcifications. He does follow-up with Cardiology. He does have a rescue inhaler. I do believe that with his cough and chest tightness I do believe that a long-acting combination inhaler such as Advair HFA will be effective. The patient would like to stay away from powdered inhaler if possible. [facility] Medical History (Updated 07/15/25 @ 22:03 by Juancho Gleason MD) Liver lesion Tobacco dependence Pulmonary nodules COPD (chronic obstructive pulmonary disease) Kidney stones Stage 1 chronic kidney disease Cirrhosis Hyperlipidemia Diabetes type 2, controlled Incarcerated umbilical hernia Surgical History Hx of umbilical hernia repair (01/11/24) H/O knee surgery History of surgery on lower extremity H/O elbow surgery H/O Spinal surgery Social History Household Members: Family Housing: Apartment Do you presently have visiting nurse or other home services: No Patient Tobacco Use Status: Current everyday Tobacco user Tobacco use type: Cigarette Cigarette Packs Per Day: 8 Cigarettes Per Day: 160.0 Years Smoked: 18 Substance Use Type: Marijuana Advance Directives Date on File: 01/13/24 service: No Review of Systems Const Denies fever(s) Eyes Reports no additional complaints ENT Reports nasal discharge Card Denies chest pain and Reports dyspnea Resp Reports cough, Reports dyspnea and Denies wheezing GI Reports as per HPI and Reports abdominal pain Musc Reports myalgias Skin/Breast Denies rash Neuro Reports no additional complaints Oliverio/Lymph Reports no additional complaints Aller/Immun Denies wheezing Physical Exam Vital Signs: Last Vital Signs Pulse 70 07/14/25 13:39 BP 100/56 L 07/14/25 13:39 Pulse Ox 96 07/14/25 13:39 Oxygen Delivery Method Room Air 07/14/25 13:39 BMI result Body Mass Index 35.4 Const General: comfortable HEENT Head: Yes normocephalic Neck Neck: Yes supple Chest Chest palpation & inspection: normal inspection of the chest Resp Effort & Inspection: normal respiratory effort Auscultation: diminished lung sounds Cardio Heart sounds: S1 normal heart sound present and S2 normal heart sound present GI Palpation (GI): Soft to palpation Skin General skin exam: no rashes or lesions noted Extrem General: No clubbing and No cyanosis Assessment & Plan Assessment & Plan (1) COPD (chronic obstructive pulmonary disease): Code(s): J44.9 - Chronic obstructive pulmonary disease, unspecified Category: Medical Qualifiers: COPD type: chronic bronchitis Chronic bronchitis type: mixed simple and mucopurulent Qualified Code(s): J41.8 - Mixed simple and mucopurulent chronic bronchitis (2) Pulmonary nodules: Code(s): R91.8 - Other nonspecific abnormal finding of lung field Category: Medical (3) Tobacco dependence: Code(s): F17.200 - Nicotine dependence, unspecified, uncomplicated Category: Medical (4) Liver lesion: Code(s): K76.9 - Liver disease, unspecified Category: Medical Plan start Advair HFA CLAUDIA as needed Tobacco cessation: patch and breakthoug nicotine gum repeat CT chest (RADS 3 back in 10/2024) CT chest at [facility] Awaiting liver biosy results from [place] F/U 3-4 months Orders: Orders CT chest wo IV con Today R91.8 - Other nonspecific abnormal finding of lung field Medications: New fluticasone propion-salmeterol 115-21 mcg/actuation (Advair HFA) 2 puffs inhalation Q12H 12 grams 11RF 30 days nicotine (polacrilex) (Nicorette) 2 mg buccal Q2H 110 ea 3RF 30 days nicotine 1 patch transdermal DAILY 28 ea 6RF 28 days Changed From albuterol sulfate 90 mcg/actuation (Ventolin HFA) 2 puffs inhalation Q6H PRN Wheezing To albuterol sulfate 90 mcg/actuation (Ventolin HFA) 2 puffs inhalation Q6H PRN 8.5 grams 11RF Wheezing 30 days Coding Level of Care Code New Pt Level 4 (91578) Diagnoses Mixed simple and mucopurulent chronic bronchitis J41.8 COPD type: chronic bronchitis Chronic bronchitis type: mixed simple and mucopurulent Pulmonary nodules R91.8 Tobacco dependence F17.200 Liver lesion K76.9 Time Spent (min) 45
[2025-07-14 13:39] VITALS: BP 100/56; PULSE 70; O2SAT 96; BMI 35.4
--- OUTSIDE RECORDS SUMMARY | 2025-07-14 13:44 | XMS_ITS | Clinical Summary ---
Author Organization [facility] ity Address [address] [place] [address] Care Team Providers Care Pipe Insulator Name Role Phone Unavailable Primary Care Provider Unavailabl e Social History Tobacco Use Types Packs/Day Years Used Date Smoking Tobacco: Never Assessed Sex and Gender Information Value Date Recorded Sex Assigned at Not on file Legal Sex Male 5:52 PM EST Gender Identity Not on file Sexual Orientation Not on file Plan of Treatment Health Maintenance Due Date Last Done Comments DTaP,Tdap,and Td Vaccines (1 - Tdap) 1989 Hepatitis B Vaccines (1 of 3 - 19+ 3-dose series) 1989 Pneumococcal Vaccine: 50+ Ye ars (1 of 1 - PCV) 2020 Zoster Vaccines (1 of 2) 2020 Depression Screening 10/26/2024 COVID-19 Vaccine (1 - 2023-2 5 season) 2025 Influenza Vaccine (#1) 2025 HIB Vaccines Aged Out No longer eligi ble based on patient's age to complete this topic HPV Vaccines Aged Out No longer eligi ble based on patient's age to complete this topic Hepatitis A Vaccines Aged Out No long er eligible based on patient's age to complete this topic IPV Vaccines Aged Out No longer eligi ble based on patient's age to complete this topic MMR Vaccines Aged Out No longer eligi ble based on patient's age to complete this topic Meningococcal ACWY Vaccine Aged Out N o longer eligible based on patient's age to complete this topic Meningococcal B Vaccine Aged Out No l onger eligible based on patient's age to complete this topic RSV Immunization Patients Un nayely 20 months Aged Out No longer eligible b ased on patient's age to complete this topic Varicella Vaccines Aged Out No longer eligible based on patient's age to complete this topic Advance Directives Documents on File Type Date Recorded Patient Emergency Vehicle Driver Expl anation Health Care Decision (hx) 06/08/2021 AD PEARSON DIRECTIVE Health Care Decision (hx) 05/17/2021 AD LILI DIRECTIVE
--- OUTSIDE RECORDS SUMMARY | 2025-07-14 13:44 | XMS_ITS | Encounter Summary ---
Author Organization [facility] Address [facility] [employer] [address] [address] Phone Care Team Providers Care Dental Appliance Mechanic Name Role Phone Tessa Lazo MD Primary Care Provider Encounter Details Date Type Department Care Team (Latest Contact Info) Description 08/12/2024 Transcribe Orders [facility] [address] [place] [address] John Sapp MD [address] [place] [id number] [email or web address] Pre-transplant evaluation for liver transplant (Primary Dx) Social History Tobacco Use Types Packs/Day Years Used Date Smoking Tobacco: Never Assessed Education Answer Date Recorded Are you interested in more education? Not on suleiman e 07/14/2024 Are you concerned about learning? Not on file 07/14/2024 No 07/14/2024 No 07/14/2024 Digital Access Answer Date Recorded No 07/14/2024 No 07/14/2024 Reliable internet access at home? Not on file 07/14/2024 Device with a working camera? Not on file Sex and Gender Information Value Date Recorded Sex Assigned at Not on file Legal Sex Male 4:09 PM EDT Gender Identity Not on file Sexual Orientation Not on file documented as of this encounter Plan of Treatment Not on file documented as of this encounter Procedures Procedure Name Priority Date/Time Associated Diagnosis Comments HC ANTIBODY CYTOMEGALOVIRUS CMV Routine 08/12/2024 10:36 AM EDT Pre-transplant evaluation for liver transplant AHSAN-VERMA VIRUS (EBV) ANTIBODY PANEL Routine 08/12/2024 10:36 AM EDT Pre-transplant evaluation for liver transplant documented in this encounter Results * Cytomegalovirus Antibodies (IgG, IgM) (08/12/2024 10:36 AM EDT) CMV IGM ANTIBODY Negative [facility] CYTOMEGALOVIRUS IGG Negative Negative [facility] [place] Blood 08/12/2024 10:3 6 AM EDT 08/12/2024 10:38 AM EDT us John Sapp MD LAB BLOOD ORDERABLES Final Resul t [facility] MED[facility] [address] [place] [address] * Ahsan-Verma Virus (EBV) Antibody Panel (08/12/2024 10:36 AM EDT) EBV VCA, IGG Positive Negative [facility] MED[facility] EBV VCA, IGM Negative Negative [facility] EB NUCLEAR AG ABS Positive Negative [facility] EBV Ab Panel Interpretation SEE NOTE [facility] [place] Comment: (NOTE) Results suggest past infection. ADDITIONAL INFORMATION In most populations, at least 90% of the adult population will have been infected with EBV sometime in the past and therefore, will be positive for anti-VCA/IgG and anti- EBNA. Antibodies to EBNA develop 6-8 weeks after primary infection and remain present for life. Presence of VCA/ IgM antibodies indicates recent primary infection with EBV. Blood (Blood) 08/12/2024 10: 36 AM EDT 08/12/2024 10:38 AM EDT us John Sapp MD MICROBIOLOGY - GENERAL ORDERABLE S Final Result Performing Organization Address City/State/[facility] Co de Phone Number [facility] MED[facility] [address] [place] [address] documented in this encounter Visit Diagnoses Diagnosis Pre-transplant evaluation for liver transplant- Primary documented in this encounter Care Teams Dental Appliance Mechanic Relationship Specialty Start Date End Date Tessa Lazo MD [address] [place] [id number] PCP - General Internal Medicine 08/12/24 documented as of this encounter Additional Source Comments The information contained in this document represents components of the legal health record. It is not the complete legal health record.[facility]
--- OUTSIDE RECORDS SUMMARY | 2025-07-14 13:44 | XMS_ITS ---
Author Organization [facility] Address [facility] [employer] [facility] [address] [place] [phone] Phone Care Team Providers Care Card Puncher Name Role Phone Tessa Lazo MD Primary Care Provider [phone] Transplant Episode Liver Candidate [facility] ([place], [place]) - [facility] Evaluation began on 08/12/2024 Marked as Deferred on 08/24/2024 Reason: Pending Additional Tests Liver CoordinatorPia Yanez RN Email: [email or web address] Scores Score Value Updated Expires Exceptions/Helena sons CPRA Not available UNOS MELD Not available MELD (Calc) 7 08/12/2024 Resighini Organ Diagnosis Organ Primary Contributory Liver Cirrhosis: Fatty Liver (LYLES) Care Team Name Role Phone Fax Email Pia Yanez RN Liver Coordinator [phone] [email or web address] Lai [facility] Environmental Law Professor [phone] [email or web address] John Sapp MD Transplant Medical Physician [phone] [email or web address] Chris Gonzales MD Referring Physician [phone] N/A Amanda Nowak, LDN Dietitian [phone] N/A [email or web address] Wendi More, MARICEL Pasta Press Operator [phone] N/A Tessa Lazo MD Primary Care Physician [phone] N/A Margi Segovia MD, PhD Transplant Surgeon [phone] [email or web address] Pre-Transplant Referred: 06/24/2024 Evaluation began: 08/12/2024 Committee: 08/24/2024 Appointments (06/13/2025 - 08/13/2025) When With Visit Type Description 07/03/2025 Radiology - Aranda, V IR BIOPSY W/ Sed Hepato megaly, not elsewhere classified
--- OUTSIDE RECORDS SUMMARY | 2025-07-14 13:45 | XMS_ITS | Encounter Summary ---
Author Organization [facility] Address [facility] access hospital [employer] [address] [address] Phone Care Team Providers Care Milk Treater Name Role Phone Tessa Lazo MD Primary Care Provider [phone] Reason for Referral * Outpatient Procedure - Closed Specialty Diagnoses / Procedures Referred By Vaughn machado Referred To Contact Radiology Diagnoses Liver mass Procedures IR Biopsy Abdomen/Pelvis; Liver; Focal NV NEEDLE BIOPSY LIVER CHG US GUIDE, VASCULAR ACCESS CHG SONO GUIDE NEEDLE BIOPSY CHG CT GUIDANCE NEEDLE PLACEMENT NV MOD SED SAME PHYS/QHP INITIAL 15 MINS 5/> YRS NV MOD SED SAME PHYS/QHP EACH ADDL 15 MINS John Sapp MD [address] [place] [id number] Phone: tel: fax: [email or web address] Referral ID Status Reason Start Date Expiration Date Visits Re quested Visits Authorized [id number] Closed 07/03/2025 12/31/2025 1 1 Encounter Details Date Type Department Care Team (Late st Contact Info) Description 07/03/2025 Ancillary Orders [facility] Imaging - RF/IR [address] [place] [address] John Sapp MD [address] [facility] [address] [place] [address] [email or web address] Liver mass (Primary Dx) Social History Tobacco Use Types [...] with a working camera? Not on file Intimate Partner Violence Answer Date R ecorded Are you denied basic needs s uch as food, clothing, or medical care? No 07/03/2025 In the past 12 months have y ou been in a relationship with a person who hurts, threatens, or tries to control you? No 07/03/2025 Are you denied basic needs s uch as food, clothing, or medical care? No 07/03/2025 In the past 12 months have y ou been in a relationship with a person who hurts, threatens, or tries to control you? No 07/03/2025 Sex and Gender Information Value Date Recorded Sex Assigned at Not on file Legal Sex Male 4:09 PM EDT Gender Identity Not on file Sexual Orientation Not on file documented as of this encounter Plan of Treatment Not on file documented as of this encounter Results * IR Biopsy Abdomen/Pelvis; Liver; Focal (07/03/2025 12:12 PM EDT) Anatomical Region Laterality Modality Abdomen Computed Tomogra phy 07/03/2025 12:3 5 PM EDT Narrative 07/03/2025 4:41 PM EDT Procedure: CT-Guided focal liver biopsy of caudate lobe lesion and segment 5 lesion Clinical History and Indication: Decompensated MASLD cirrhosis referred to [facility] for transplant work-up. MRI showing enhancing abnormalities in segment 5 and caudate lobe. Referred to IR for sampling. Operators: Attending: Dr. Mateo Aranda MD Advanced Practice Provider: None. Resident/Fellow: Dr. Stevie Daniel MD Pre-Procedural Medications: Antibiotics: None. Other: None. Intra-Procedural Medications and Contrast: 1% lidocaine. See medication administration in electronic medical record for details. Sedation: Moderate Procedural (Conscious) Sedation was administered and monitored by radiology department nursing staff and supervised by the licensed independent provider. The following parameters were monitored: oxygen saturation, heart rate, blood pressure and response to care. The licensed independent provider spent 60 minutes of continuous [id number] sedation time with the patient. Technique and Findings: Informed consent was obtained from the patient. The patient was placed in supine position on the CT table and dominatrix images were obtained. Previous MRI from 04/29/2025 was also used to guide biopsy of caudate lobe and segment 5 lesions. After assessing the most direct access to the lesion, the patient's skin was prepped in the usual sterile fashion. 1% Lidocaine local anesthetic was applied to the skin and subcutaneous tissues. 18 gaugex 20 cm 4 cores caudate 18 gaugex 16 cm 3 cores segment 5 Subsequently, 18 gauge x 20 cm Bard biopsy needle was advanced into the caudate lobe lesion. Four 18 gauge 2 cm core biopsy samples of the mass were obtained. The introducer needle was closed with blunt stilette. Now we targeted segment 5 lesion using 18 gauge x 16 cm Bard biopsy needle and obtained 3 18 gauge 2 cm cores of segment 5 lesion. Gel foam slurry was injected into both needles along the track while retracting the needles. Entry sites covered with bandage. Postprocedural images demonstrate no evidence of hematoma. The patient tolerated the procedure well and was transported to the recovery area in stable condition. Specimens Submitted: None. Adverse Events: None. Estimated Blood Loss: Minimal. Summary: CT guided core biopsy of caudate lobe and segment [address] Mateo Aranda MD was present for the entire procedure. ATTESTATION: I, Dr. Mateo Aranda as teaching physician, have reviewed the images for this case and if necessary edited the report originally created by Stevie Daniel. Procedure Note Mateo Aranda MD - 07/03/2025 Procedure: CT-Guided focal liver biopsy of caudate lobe lesion and segment5 lesion Clinical History and Indication: Decompensated MASLD cirrhosis referred [facility] for transplant work-up. MRI showing enhancing abnormalities in segment5 and caudate lobe. Referred to IR for sampling. Operators: Attending: Dr. Mateo Aranda MD Advanced Practice Provider: None. Resident/Fellow: Dr. Stevie Daniel MD Pre-Procedural Medications: Antibiotics: None. Other: None. Intra-Procedural Medications and Contrast: 1% lidocaine. See medicationadministration in electronic medical record for details. Sedation: Moderate Procedural (Conscious) Sedation was administered and monitored byradiology department nursing staff and supervised by the licensedindependent provider. The following parameters were monitored: oxygensaturation, heart rate, blood pressure and response to care. The licensedindependent provider spent 60 minutes of continuous [id number] sedationtime with the patient. Technique and Findings: Informed consent was obtained from the patient. The patient was placed insupine position on the CT table and dominatrix images were obtained. PreviousMRI from 04/29/2025 was also used to guide biopsy of caudate lobe andsegment 5 lesions. After assessing the most direct access to the lesion,the patient's skin was prepped in the usual sterile fashion. 1% Lidocainelocal anesthetic was applied to the skin and subcutaneous tissues. 18 gaugex 20 cm 4 cores caudate 18 gaugex 16 cm 3 cores segment 5 Subsequently, 18 gauge x 20 cm Bard biopsy needle was advanced into thecaudate lobe lesion. Four 18 gauge 2 cm core biopsy samples of the masswere obtained. The introducer needle was closed with blunt stilette. Nowwe targeted segment 5 lesion using 18 gauge x 16 cm Bard biopsy needle andobtained 3 18 gauge 2 cm cores of segment 5 lesion. Gel foam slurry wasinjected into both needles along the track while retracting the needles.Entry sites covered with bandage. Postprocedural images demonstrate no evidence of hematoma. The patient tolerated the procedure well and was transported to therecovery area in stable condition. Specimens Submitted: None. Adverse Events: None. Estimated Blood Loss: Minimal. Summary: CT guided core biopsy of caudate lobe and segment [address] Mateo Aranda MD was present for the entire procedure. ATTESTATION: I, Dr. Mateo Aranda as teaching physician, have reviewed theimages for this case and if necessary edited the report originally createdby Stevie Daniel. John Sapp MD IMG IR Final Result documented in this encounter Visit Diagnoses Diagnosis Liver lesion Other specified disorders of liver Liver mass Unspecified disorder of liver Liver mass- Primary Unspecified disorder of liver documented in this encounter Care Teams Milk Treater Relationship Specialty Start Date End Date Tessa Lazo MD [address] [place] [id number] PCP - General Internal Medicine 08/12/24 documented as of this encounter Additional Source Comments The information contained in this document represents components of the legal health record. It is not the complete legal health record.[facility]
--- OUTSIDE RECORDS SUMMARY | 2025-07-14 13:45 | XMS_ITS | Encounter Summary ---
Author Organization [facility] Address [facility] [address] [place] [phone] Phone Care Team Providers Care Business Law Teacher Name Role Phone Tessa Lazo MD Primary Care Provider [phone] Encounter Details Date Type Department Care Team (Late st Contact Info) Description 07/03/2025 Procedure Pass [facility] Imaging - RF/IR [address] [place] [address] Social History Tobacco Use Types Packs/Day Years [...] on file documented as of this encounter Visit Diagnoses Not on filedocumented in this encounter Care Teams Business Law Teacher Relationship Specialty Start Date End Date Tessa Lazo MD [address] [place] [id number] PCP - General Internal Medicine 08/12/24 documented as of this encounter Additional Source Comments The information contained in this document represents components of the legal health record. It is not the complete legal health record.[facility]
--- OUTSIDE RECORDS SUMMARY | 2025-07-14 13:45 | XMS_ITS | Clinical Summary ---
Author Organization [facility] Address Formerly [facility] [employer] [address] [address] Phone Care Team Providers Care Journalism Professor Name Role Phone Tessa Lazo MD Primary Care Provider Allergies No known active allergies Medications VENTOLIN HFA 90 mcg/actuation inhaler Inhale 2 puffs into the lungs every 6 (six) hours as needed. 07/07/2024 Active FARXIGA 10 mg tablet Take 10 mg by mouth daily. 07/18/2024 Active gabapentin (NEURONTIN) 300 MG capsule Take 300 mg by mouth 3 (three) times a day. 07/09/2024 Active levothyroxine (SYNTHROID, LEVOTHROID) 150 MCG tablet Take 150 mcg by mouth every morning. 07/04/2024 Active furosemide (LASIX) 20 MG tablet Take 20 mg by mouth 3 (three) times a day. Active metFORMIN (GLUCOPHAGE) 1000 MG tablet Take 1,000 mg by mouth 2 (two) times a day with meals. Active spironolactone (ALDACTONE) 50 MG tablet Take 50 mg by mouth daily. Active Active Problems Problem Noted Date Diagnosed Date Cigarette smoker 08/11/2024 Nonalcoholic fatty liver 08/11/2024 Restless legs syndrome (RLS) 08/11/2024 Type 2 diabetes mellitus with renal complication 08/11/2024 History of umbilical hernia repair 08/11/2024 Carpal tunnel syndrome 08/11/2024 CKD (chronic kidney disease), stage I 07/15/2024 COPD (chronic obstructive pulmonary disease) Diabetes mellitus with diabe tic neuropathy, without long-term current use of insulin 07/15/2024 Esophageal varices 07/15/2024 Hypothyroidism 07/15/2024 Moderate major depression 07/15/2024 Severe obesity (BMI 35.0-39.9) with comorbidity 07/15/2024 Encounters Date Type Department Care Team Description 07/03/2025 8:01 AM EDT - 07/03/2025 11:59 PM EDT Hospital Encounter [facility] Imaging - RF/IR [address] [place] [address] Brent Daniels MD Wu, Vincent, MD Discharge Disposition: Home or Self Care 07/03/2025 Procedure Pass [facility] Imaging - RF/IR [address] [place] [address] 07/03/2025 Ancillary Orders [facility] Imaging - RF/IR [address] [place] [address] John Sapp MD Liver mass (Primary Dx) 07/02/2025 Orders Only For Login Purposes Only [address] [facility] [address] [place] [address] Stevie Reese MBBS 07/02/2025 Orders Only For Login Purposes Only [address] [facility] [address] [place] [address] Stevie Reese MBBS Pre-procedure lab exam (Primary Dx) 06/06/2025 Orders Only [facility] Transplant Clinic [address] [facility] [address] [place] [address] Pia Yanez RN Metabolic dysfunction-associa cedric steatotic liver disease (MASLD) (Primary Dx); Pre-transplant evaluation for liver transplant 05/30/2025 Procedure Pass [facility] Imaging - RF/IR [address] [place] [address] 05/30/2025 Orders Only [facility] INTERV RAD [address] [place] [address] Brent Daniels MD Liver lesion (Primary Dx) 05/30/2025 Prep for Procedure [facility] INTERV RAD [address] [place] [address] Brent Daniels MD 05/01/2025 Ancillary Orders [facility] [address] [place] [address] Brittanie Jasso PA-C 05/01/2025 Telephone [facility] Transplant Clinic [address] [address] Brenda Muller Appointment 04/29/2025 - 04/29/2025 11:59 PM EDT Hospital Encounter [facility] [address] [place] [address] Brittanie Jasso PA-C Discharge Disposition: Home or Self Care from Last 3 Months Social History Tobacco Use Types Packs/Day Years [...] on file Sexual Orientation Not on file Last Filed Vital Signs Vital Sign Reading Time Taken Comments Blood Pressure 98/58 07/03/2025 12:45 PM EDT Pulse 59 07/03/2025 12:49 PM EDT Temperature 36.1 C (96.9 F) 07/03/2025 8:38 AM EDT Respiratory Rate 18 07/03/2025 12:45 PM EDT Oxygen Saturation 93% 07/03/2025 12:49 PM EDT Inhaled Oxygen Concentration - - Weight 105.7 kg (233 lb) 08/30/2024 1:00 PM EST Height 170.2 cm (5' 7 ) 08/30/2024 1:00 PM EST Body Mass Index 36.49 08/30/2024 1:00 PM EST Plan of Treatment Health Maintenance Due Date Last Done Comments TSH LEVEL 1970 DEPRESSION SCREENING 1982 SMOKING Hx and SMOKELESS TOBACCO SCREENING 1983 HEPATITIS A VACCINES (1 of 2 - Risk 2-dose series) 1989 COLOGUARD 2015 COLONOSCOPY 2015 COLORECTAL CANCER SCREENING 2015 FIT TEST 2015 FOBT 2015 SIGMOIDOSCOPY 2015 VIRTUAL COLONOSCOPY 2015 PNEUMOCOCCAL VACCINES (50+ years) (2 of 2 - PPSV23) 10/02/2021 08/07/2021 DIABETIC EYE EXAM 08/11/2024 HEMOGLOBIN A1C 11/12/2024 08/12/2024 BLOOD PRESSURE 02/14/2025 08/16/2024 INFLUENZA VACCINE (#1) 2025 , 10/20/2023, 09/29/2022, Additional history exists CREATININE LEVEL 08/12/2025 08/12/2024 LIPID PANEL 08/12/2025 08/12/2024 POTASSIUM LEVEL 08/12/2025 08/12/2024 Adult Td,Tdap Booster 04/02/2031 04/02/2021 COVID-19 VACCINE Completed 07/04/2024, , 09/29/2022, Additional history exists ZOSTER VACCINES Completed 07/04/2024, 10/20/2023 HEPATITIS C SCREENING Completed 08/12/2024 HIV ONE-TIME SCREENING (18-65 YEARS) Completed 08/12/2024 HIB VACCINES Aged Out No longer eligi ble based on patient's age to complete this topic MENINGOCOCCAL VACCINES (ACWY) Aged Out No longer eligible based on patient's age to complete this topic MENINGOCOCCAL VACCINES (B) Aged Out N o longer eligible based on patient's age to complete this topic Medical Devices Not on file Procedures Procedure Name Priority Date/Time Associated Diagnosis Comments IR BIOPSY Routine 07/03/2025 12:12 PM EDT Liver mass IR BIOPSY Routine 07/03/2025 12:12 PM EDT Liver lesion POCT GLUCOSE Routine 07/03/2025 10:18 AM EDT PT-INR Routine 07/03/2025 8:41 AM EDT CBC Routine 07/03/2025 8:41 AM EDT MRI ABDOMEN OUTSIDE WITH INTERPRETATION OR CONSULT Routine 04/29/2025 12:00 AM EDT HEMOGLOBIN A1C Routine 08/12/2024 10:08 AM EDT Pre-transplant evaluation for liver transplant LIPID PANEL Routine 08/12/2024 10:08 AM EDT Pre-transplant evaluation for liver transplant HEPATITIS C ANTIBODY, QUALITATIVE Routine 08/12/2024 10:08 AM EDT Need for hepatitis C screening test COMPREHENSIVE METABOLIC PANEL Routine 08/12/2024 10:08 AM EDT Pre-transplant evaluation for liver transplant from Last 3 Months or Most Recently Relevant to Health Maintenance Results * IR Biopsy Abdomen/Pelvis; Liver; Focal (07/03/2025 12:12 PM EDT) Anatomical Region Laterality Modality Abdomen Computed Tomogra phy 07/03/2025 12:3 5 PM EDT Narrative 07/03/2025 4:41 PM EDT Procedure: CT-Guided focal liver biopsy of caudate lobe lesion and segment 5 lesion Clinical History and Indication: Decompensated MASLD cirrhosis referred to [facility] for transplant work-up. MRI showing enhancing abnormalities [...] independent provider spent 60 minutes of continuous xaan-yd-rkux sedation time with the patient. Technique and Findings: Informed consent was obtained from the patient. The patient was placed in supine position on the CT table and wellness program coordinator images were obtained. Previous MRI from 04/29/2025 [...] History and Indication: Decompensated MASLD cirrhosis referred [facility] for transplant work-up. MRI showing enhancing abnormalities [...] licensedindependent provider spent 60 minutes of continuous iuwp-pr-egel sedationtime with the patient. Technique and Findings: Informed consent was obtained from the patient. The patient was placed insupine position on the CT table and wellness program coordinator images were obtained. PreviousMRI from 04/29/2025 was [...] edited the report originally createdby Stevie Daniel. us John Sapp MD IMG IR Final Result * IR Biopsy Abdomen/Pelvis; Liver; Focal (07/03/2025 12:12 PM EDT) Anatomical Region Laterality Modality Abdomen Computed Tomogra phy 07/03/2025 12:3 5 PM EDT Narrative 07/03/2025 4:41 PM EDT Procedure: CT-Guided focal liver biopsy of caudate lobe lesion and segment 5 lesion Clinical History and Indication: Decompensated MASLD cirrhosis referred to [facility] for transplant work-up. MRI showing enhancing abnormalities [...] independent provider spent 60 minutes of continuous bagj-bx-litn sedation time with the patient. Technique and Findings: Informed consent was obtained from the patient. The patient was placed in supine position on the CT table and wellness program coordinator images were obtained. Previous MRI from 04/29/2025 [...] History and Indication: Decompensated MASLD cirrhosis referred [facility] for transplant work-up. MRI showing enhancing [...] licensedindependent provider spent 60 minutes of continuous hfyk-oy-rigd sedationtime with the patient. Technique and Findings: Informed consent was obtained from the patient. The patient was placed insupine position on the CT table and wellness program coordinator images were obtained. PreviousMRI from 04/29/2025 was [...] the procedure well [facility] Specimens Submitted: None. Adverse Events: None. Estimated Blood Loss: Minimal. Summary: CT guided core biopsy of caudate lobe and segment [address] Mateo Aranda MD was present for the entire procedure. ATTESTATION: I, Dr. Mateo Aranda as teaching physician, have reviewed theimages for this case and if necessary edited the report originally createdby Stevie Daniel. us Brent Daniels MD IMG IR Final Result * (ABNORMAL) POCT Glucose (07/03/2025 10:18 AM EDT) Glucose, POCT 123(H) 70 - 110 mg/dL [facility] 07/03/2025 10:1 8 AM EDT 07/03/2025 10:24 AM EDT Result Franky Daniels MD POINT OF CARE TEST ORDERABLES Fi nal Result Performing Organization Address City/[facility]/ZIP Co de Phone Number [address] [address] * (ABNORMAL) PT-INR (07/03/2025 8:41 AM EDT) PT 13.5(H) 10.0 - 13.0 sec [facility] INR 1.2(H) 0.9 - 1.1 [facility] Blood 07/03/2025 8:41 AM EDT 07/03/2025 8:47 AM EDT Result Franky Daniel MBBS LAB BLOOD ORDERABLES F inal Result Performing Organization Address City/[facility]/ZIP Co de Phone Number [address] [address] * (ABNORMAL) CBC (07/03/2025 8:41 AM EDT) WBC 7.53 4.00 - 11.00 K/uL [facility] RBC 5.36 4.50 - 5.90 M/uL [facility] HGB 15.8 13.5 - 17.5 g/dL [facility] HCT 46.0 41.0 - 53.0 % [facility] PLT 82(L) 150 - 450 K/uL [facility] MCV 85.8 80.0 - 100.0 fL [facility] MCH 29.5 27.0 - 31.0 pg [facility] MCHC 34.3 32.0 - 36.0 g/dL [facility] RDW 13.6 11.5 - 14.5 % [facility] MPV 11.2 8.4 - 12.0 fL [facility] NRBC 0.00 0.00 /100 WBCs [facility] ABSOLUTE NRBC 0.00 0.00 K/uL [facility] Blood 07/03/2025 8:41 AM EDT 07/03/2025 8:48 AM EDT us Stevie JOHNSON LAB BLOOD ORDERABLES F inal Result [address] [address] * MRI Abdomen Outside With Interpretation Or Consult (04/29/2025 12:00 AM EDT) 05/04/2025 10:5 8 AM EDT [facility] - 05/04/2025 5:20 PM EDT * Cirrhosis with sequelae of portal hypertension to include splenomegaly and trace ascites. * No LR-5/M lesion. * No significant change in nodular regions of washout along the gallbladder fossa and hepatic segment 1 measuring up to 44 mm without arterial hyperenhancement, LR 4. Note that these could reflect regenerative nodules, which often demonstrate aberrant enhancement kinetics in these regions. * No significant change in subcentimeter scattered foci of arterial hyperenhancement, likely perfusional, LR 3. * Common hepatic artery arises from the superior mesenteric artery. ATTESTATION: I, Dr. Deon Crepso as teaching physician, have reviewed the images for this case and if necessary edited the report originally created by Petty Aaron. [facility] - 05/04/2025 5:20 PM EDT MRI ABDOMEN OUTSIDE WITH INTERPRETATION OR CONSULT Referring clinician's provided indication for this examination in Epic: Pre- liver transplant cross-sectional imaging. Please assess biliary and ; vascular anatomy and screening for HCC with LI-RADS/OPTN classification. TECHNIQUE: MRI of the abdomen was performed with intravenous contrast. COMPARISON: MRI ABDOMEN OUTSIDE WITH INTERPRETATION OR CONSULT FINDINGS: Lower Chest: Normal. No effusions. Liver: Cirrhotic morphology with diffuse fibrotic changes. No global parenchymal signal abnormality. * Few scattered bilobar subcentimeter foci of arterial hyperenhancement (e.g. 8:29, 56, 73) without other signal correlate, LR 3. These are likely not significantly changed allowing for the better arterial phase on the current study. * No significant change in nodular regions of washout along the gallbladder fossa and segment 1, largest of which measure 44 mm and 28 mm (12:77 and 12:79, with additional smaller examples on 12:87 and 12:72)). No arterial hyperenhancement, LR 4. Biliary: No biliary ductal dilatation. Spleen: Splenomegaly, 17.6 cm. Siderotic nodules. No focal lesions. Pancreas: No masses or ductal dilatation. Adrenal Glands: No nodules. Kidneys/Ureters: Bilateral renal cysts. No solid masses or hydronephrosis. Bowel: No dilatation or wall thickening. Peritoneum/Retroperitoneum: Trace ascites. No masses. Lymph Nodes: No lymphadenopathy. Vessels: Replaced common hepatic artery arising from the SMA with mild focal narrowing at the origin. No abdominal aortic aneurysm. Small distal esophageal gastric varices. An accessory segment 6 hepatic vein drains directly into the inferior vena cava. Bones/Soft Tissues: No focal marrow replacing lesions. Procedure Note Deon Crespo MD - 05/04/2025 MRI ABDOMEN OUTSIDE WITH INTERPRETATION OR CONSULT Referring clinician's provided indication for this examination in Epic:Pre-liver transplant cross-sectional imaging. Please assess biliary and ;vascular anatomy and screening for HCC with LI-RADS/OPTN classification. TECHNIQUE: MRI of the abdomen was performed with intravenous contrast. COMPARISON: MRI ABDOMEN OUTSIDE WITH INTERPRETATION OR [id number] FINDINGS: Lower Chest: Normal. No effusions. Liver: Cirrhotic morphology with diffuse fibrotic changes. No global parenchymalsignal abnormality. * Few scattered bilobar subcentimeter foci of arterial hyperenhancement(e.g. 8:29, 56, 73) without other signal correlate, LR 3. These are likelynot significantly changed allowing for the better arterial phase on thecurrent study. * No significant change in nodular regions of washout along thegallbladder fossa and segment 1, largest of which measure 44 mm and 28 mm(12:77 and 12:79, with additional smaller examples on 12:87 and 12:72)).No arterial hyperenhancement, LR 4. Biliary: No biliary ductal dilatation. Spleen: Splenomegaly, 17.6 cm. Siderotic nodules. No focal lesions. Pancreas: No masses or ductal dilatation. Adrenal Glands: No nodules. Kidneys/Ureters: Bilateral renal cysts. No solid masses or hydronephrosis. Bowel: No dilatation or wall thickening. Peritoneum/Retroperitoneum: Trace ascites. No masses. Lymph Nodes: No lymphadenopathy. Vessels: Replaced common hepatic artery arising from the SMA with mildfocal narrowing at the origin. No abdominal aortic aneurysm. Small distalesophageal gastric varices. An accessory segment 6 hepatic vein drainsdirectly into the inferior vena cava. Bones/Soft Tissues: No focal marrow replacing lesions. IMPRESSION: * Cirrhosis with sequelae of portal hypertension to include splenomegalyand trace ascites. * No LR-5/M lesion. * No significant change in nodular regions of washout along thegallbladder fossa and hepatic segment 1 measuring up to 44 mm withoutarterial hyperenhancement, LR 4. Note that these could reflectregenerative nodules, which often demonstrate aberrant enhancementkinetics in these regions. * No significant change in subcentimeter scattered foci of arterialhyperenhancement, likely perfusional, LR 3. * Common hepatic artery arises from the superior mesenteric artery. ATTESTATION: I, Dr. Deon Crespo as teaching physician, have reviewedthe images for this case and if necessary edited the report originallycreated by Petty Aaron. us Brittanie STOLL OUTSIDE IMAGING W/ INTERPRETATION Final Result [facility] [place] [place] [address] * (ABNORMAL) Comprehensive metabolic panel (08/12/2024 10:08 AM EDT) SODIUM 138 133 - 146 mmol/L [facility] POTASSIUM 3.9 3.3 - 5.1 mmol/L [facility] CHLORIDE 101 96 - 108 mmol/L [facility] CO2 26 21 - 35 mmol/L [facility] BUN 14 6 - 19 mg/dL [facility] CREATININE 1.00 0.5 - 1.5 mg/dL [facility] GLUCOSE 167(H) 70 - 99 mg/dL [facility] ALBUMIN 4.7 3.9 - 4.8 g/dL [facility] TOTAL PROTEIN 9.0(H) 6.5 - 8.0 g/dL [facility] CALCIUM 9.8 8.4 - 10.3 mg/dL [facility] ALKALINE PHOSPHATASE 152(H) 39 - 117 U/L [facility] TOTAL BILIRUBIN 0.7 0.0 - 1.2 mg/dL [facility] AST 35 0 - 37 U/L [facility] ALT 23 0 - 40 U/L [facility] GLOBULIN 4.3 1 - 4.8 g/dL [facility] EGFR 89 >59 mL/min/1.7 3m2 [facility] Comment:Estimated glomerular filtration rate calculated using the CKD-EPI refit equation. ANION GAP 15 10 - 20 mmol/L [facility] Blood 08/12/2024 10:0 8 AM EDT 08/12/2024 10:33 AM EDT John Sapp MD LAB BLOOD ORDERABLES Final Resul t [address] [address] * Hepatitis C antibody, qualitative (08/12/2024 10:08 AM EDT) HCV NON-REACTIV E NON-REACTI VE [facility] Blood 08/12/2024 10:0 8 AM EDT 08/12/2024 10:33 AM EDT John Sapp MD LAB BLOOD ORDERABLES Final Resul t Performing Organization Address [facility] Co de Phone Number [address] [address] * (ABNORMAL) Hemoglobin A1c (08/12/2024 10:08 AM EDT) HEMOGLOBIN A1C 8.2(H) 4.3 - 5.8 % [facility] Blood 08/12/2024 10:0 8 AM EDT 08/12/2024 10:25 AM EDT us John Sapp MD LAB BLOOD ORDERABLES Final Resul t Performing Organization Address [facility] Co de Phone Number [address] [address] * (ABNORMAL) Lipid panel (08/12/2024 10:08 AM EDT) HDL 41 mg/dL [facility] Comment: Interpretation <40 mg/dL: Low HDL cholesterol (major risk factor for CHD) Greater than or equal to 60 mg/dL: High HDL cholesterol ( negative risk factor for CHD) HDL - cholesterol is affected by a number of factors, e.g. smoking, excerise, hormones, sex and age. CHOLESTEROL 187 0 - 240 mg/dL [facility] TRIGLYCERIDES 187(H) 30 - 160 mg/dL [facility] LDL 109 50 - 129 mg/dL [facility] Comment: LDL levels in terms of risk for coronary heart disease: <100 mg/dL: Optimal 100-129 mg/dL: Near or above optimal 130-159 mg/dL: Borderline high 160-189 mg/dL: High >190 mg/dL: Very High CARDIAC RISK RATIO 4.6 3.4 - 5.0 C [facility] Blood 08/12/2024 10:0 8 AM EDT 08/12/2024 10:33 AM EDT us John Sapp MD LAB BLOOD ORDERABLES Final Resul t Performing Organization Address [facility] Co de Phone Number [address] [address] from Last 3 Months or Most Recently Relevant to Health Maintenance Insurance [employer] Care Teams Journalism Professor Relationship Specialty Start Date End Date Tessa Lazo MD [address] [place] [phone] PCP - General Internal Medicine 08/12/24 Additional Source Comments The information contained in this document represents components of the legal health record. It is not the complete legal health record.[facility]
--- OUTSIDE RECORDS SUMMARY | 2025-07-14 13:45 | XMS_ITS | Encounter Summary ---
Author Organization [facility] Address [facility] [address] [place] [phone] Phone Care Team Providers Care Senior Professional Services Consultant Name Role Phone Tessa Lazo MD Primary Care Provider Encounter Details Date Type Department Care Team (Late st Contact Info) Description 05/30/2025 Procedure Pass [facility] Imaging - RF/IR [address] [place] [address] Social History Tobacco Use Types Packs/Day Years [...] on filedocumented in this encounter Care Teams Senior Professional Services Consultant Relationship Specialty Start Date End Date Tessa Lazo MD [address] [place] [phone] PCP - General Internal Medicine 08/12/24 documented as of this encounter Additional Source Comments The information contained in this document represents components of the legal health record. It is not the complete legal health record.[facility]
== END 2025-07-14 14:08 | disposition home or self-care (01) ==
LOC: HO.HPS 13:31
PROVIDERS: PCP Student in an Organized Health Care Education/Training Program; Referring Provider Student in an Organized Health Care Education/Training Program; Visit Provider Hospitalist
DX: J41.8 Mixed simple and mucopurulent chronic bronchitis (principal); R91.8 Other nonspecific abnormal finding of lung field; F17.200 Nicotine dependence, unspecified, uncomplicated; K76.9 Liver disease, unspecified
CPT/HCPCS: 99204

== ENCOUNTER → 2025-07-14 13:31 | Outpatient (BNVA) | payer OTHER, SELFPAY | PROVIDERS: PCP Student in an Organized Health Care Education/Training Program; Referring Provider Student in an Organized Health Care Education/Training Program; Visit Provider Hospitalist | DX: J41.8 Mixed simple and mucopurulent chronic bronchitis (principal); R91.8 Other nonspecific abnormal finding of lung field; F17.200 Nicotine dependence, unspecified, uncomplicated; K76.9 Liver disease, unspecified | CPT/HCPCS: 99202 ==

== ENCOUNTER 2025-09-25 15:42 | Outpatient (REF) | payer OTHER, SELFPAY ==
--- NOTE | ~2025-09-25 | CT_ITS ---
EXAMINATION: CT CHEST WITHOUT IV CONTRAST INDICATION: R91.8 - Other nonspecific abnormal finding of lung field COMPARISON: Abdominal and pelvic CT December 2023 TECHNIQUE: Helical CT scan of the chest was performed without intravenous contrast. Coronal and sagittal reformatted images were generated and reviewed. This CT exam was performed with one or more of the following dose reduction techniques: automated exposure control, adjustment of the mA and/or kV according to patient size, use of iterative reconstruction technique. DLP: 285 mGy-cm CHEST: THYROID: The thyroid is unremarkable. LUNGS: 3 mm right upper lobe nodule axial image 1:15 series 4 or. 5 mm right upper lobe nodule axial image 181 series 4. 3 mm right lower lobe nodule axial image 322 series. 3 mm peripheral or subpleural left upper lobe nodule adjacent to the fissure axial image 165 series 4. Heterogeneous attenuation suggestive of mosaic perfusion probably from small airways disease. Central airways are clear. MEDIASTINUM: There is no enlarged mediastinal lymph nodes. There are small posterior mediastinal lymph nodes adjacent to the esophagus. There is questionable mild circumferential wall thickening of the distal thoracic esophagus and increased fat stranding. Question esophagitis. MAURO: Evaluation of the hilar regions is limited by lack of intravenous contrast material. CARDIOVASCULATURE: The heart is normal in size. There is no pericardial effusion. The thoracic aorta is normal in caliber. DEGREE OF CORONARY CALCIFICATION: moderate PLEURA: There is no pleural effusion. No pneumothorax. MAIN AIRWAYS: The mainstem bronchi and proximal branches are patent. AXILLA: There is no axillary lymphadenopathy. Bilateral gynecomastia. BONES AND SOFT TISSUES: Severe degenerative changes of the right shoulder. Periarticular soft tissue ossification synovial thickening. Degenerative changes of the spine. Old trauma to the right lower ribs. UPPER ABDOMEN: Cirrhotic appearing liver. Spleen not completely imaged but appears enlarged. Fatty infiltration of the right diaphragmatic crura for example axial image 61 series 3. This is similar to prior abdominal pelvic CT. CT/CT chest wo IV con IMPRESSION: Bilateral pulmonary nodules, largest measuring 5 mm in the right upper lobe. Fleischner Criteria for pulmonary nodule follow-up SOLID NODULES: Low risk patient: <6mm: no follow-up 6-8mm: 6 month follow-up CT >8mm: PET/Biopsy/ 3 month follow-up CT High risk patient: <6mm: 12 month follow-up CT 6-8mm: 6 month follow-up CT >8mm: PET/Biopsy/ 3 month follow-up CT SUB-SOLID/GROUNDGLASS NODULES: All patients: > or = 6mm: 6 month follow-up CT *Please note that in patients in the following categories, the Fleischner criteria do not apply: Immunocompromised, lung cancer screening population, age below 35, and patients with known malignancy Moderate coronary artery calcification. Question mild circumferential wall thickening the distal thoracic esophagus, surrounding fat stranding and small posterior mediastinal lymph nodes. Question esophagitis. Cirrhosis, splenomegaly and gynecomastia. Electronically signed by: Tonya Topete MD 09/25/2025 04:53 PM [facility] REGAN
--- OUTSIDE RECORDS SUMMARY | 2025-09-25 18:32 | XMS_ITS | Clinical Summary ---
Author Organization [facility] ity Address [address] [place] [address] Care Team Providers Care Landfill Attendant Name Role Phone Unavailable Primary Care Provider [...] Depression Screening 10/26/2024 COVID-19 Vaccine (1 - 2024-2 6 season) 2025 Influenza Vaccine (#1) 2025 RSV Immunization Adult Patie nts (1 - 1-dose 75+ series) 2045 HIB Vaccines Aged Out No longer eligi [...] Documents on File Type Date Recorded Patient Printing Table Hand Expl anation Health Care Decision (hx) 06/08/2021 AD PEARSON DIRECTIVE Health Care Decision (hx) 05/17/2021 AD PEARSON DIRECTIVE
--- OUTSIDE RECORDS SUMMARY | 2025-09-25 18:32 | XMS_ITS | Encounter Summary ---
Author Organization [facility] Address [facility] [address] [address] Phone Care Team Providers Care Painter And Decorator Apprentice Name Role Phone Tessa Lazo MD Primary Care Provider [phone] Encounter Details Date Type Department Care Team (Latest Contact Info) Description 08/12/2024 Transcribe Orders [facility] [address] [place] [address] John Sapp MD [address] [place] [phone] [email or web address] Pre-transplant evaluation for liver transplant (Primary Dx) [...] EDT) CMV I[facility] ANTIBODY Negative Negative [facility] CYTOMEGALOVIRUS IGG Negative Negative [facility] Blood 08/12/2024 10:3 6 AM EDT 08/12/2024 10:38 AM EDT us John Sapp MD LAB BLOOD BKR ORDERABLES Final R esult [facility] LAB MED/PATH [facility] [address] [place] [address] * Ahsan-Verma Virus (EBV) Antibody Panel (08/12/2024 10:36 AM EDT) EBV VCA, IGG Positive Negative [facility] LAB MED/PATH SUPERIOR EBV VCA, IGM Negative Negative [facility] PT LAB MED/PATH SUPERIOR EB NUCLEAR AG ABS Positive Negative [facility] MED[facility]PATH SUPERIOR EBV Ab Panel Interpretation SEE NOTE [facility] MED/PATH [facility] Comment: (NOTE) Results suggest past infection. ADDITIONAL [...] EDT us John Sapp MD LAB BLOOD BKR ORDERABLES Final R esult [facility] LAB MED/PATH [facility]PERIOR [address] [place] [address] documented in this encounter Visit Diagnoses Diagnosis Pre-transplant evaluation for liver transplant- Primary documented in this encounter Care Teams Painter And Decorator Apprentice Relationship Specialty Start Date End Date Tessa Lazo MD [address] [place] [phone] PCP - General Internal Medicine 08/12/24 documented as of this encounter Additional Source Comments The information contained in this document represents components of the legal health record. It is not the complete legal health record.[facility]
--- OUTSIDE RECORDS SUMMARY | 2025-09-25 18:33 | XMS_ITS | Encounter Summary ---
Author Organization [facility] Address [facility] [facility] [address] [place] [address] Phone Care Team Providers Care Home Theater Expert Name Role Phone Tessa Lazo MD Primary Care Provider [phone] Encounter Details Date Type Department Care Team (Late st Contact Info) Description 07/03/2025 Procedure Pass [facility] Imaging - RF/IR [address] [place] [address] Social History Tobacco Use Types Packs/Day Years [...] on filedocumented in this encounter Care Teams Home Theater Expert Relationship Specialty Start Date End Date Tessa Lazo MD [address] [place] [address] PCP - General Internal Medicine 08/12/24 documented as of this encounter Additional Source Comments The information contained in this document represents components of the legal health record. It is not the complete legal health record.[facility]
--- OUTSIDE RECORDS SUMMARY | 2025-09-25 18:33 | XMS_ITS | Clinical Summary ---
Author Organization [facility] Address [facility] [employer] [address] [address] Phone Care Team Providers Care Mid Level Net Developer Name Role Phone Tessa Lazo MD Primary Care Provider [phone] Allergies No known active allergies Medications VENTOLIN [...] Encounters Date Type Department Care Team Description 08/23/2025 Committee Review [facility] [place] [place] [facility] [address] [address] Pia Yanez RN 07/03/2025 8:01 AM EDT - 07/03/2025 11:59 PM EDT Hospital Encounter [facility] [place] [place] Imaging - RF/IR [address] [place] [address] Brent Daniels MD Wu, Vincent, MD Discharge Disposition: Home or Self Care 07/03/2025 Procedure Pass [facility] [place] [place] Imaging - RF/IR [address] [place] [address] 07/03/2025 Ancillary Orders [facility] [place] [place] Imaging - RF/IR [address] [place] [address] John Sapp MD Liver mass (Primary Dx) 07/02/2025 Orders Only For Login Purposes Only 15 [facility] [address] [place] [address] Stevie Reese MBBS 07/02/2025 Orders Only For Login Purposes Only 15 [facility] 2 [address] [place] [address] Stevie Reese MBBS Pre-procedure lab exam (Primary Dx) 05/30/2025 Procedure Pass [facility] [place] [place] Imaging - RF/IR [address] [place] [address] from Last 3 Months Social History Tobacco [...] FOBT 2015 SIGMOIDOSCOPY 2015 VIRTUAL COLONOSCOPY 2015 RSV VACCINE (1 - Risk 50-74 years 1-dose series) 2020 PNEUMOCOCCAL VACCINES (50+ years) (2 of 2 - PPSV23, PCV20, or PCV21) 10/02/2021 08/07/2021 DIABETIC EYE EXAM 08/11/2024 HEMOGLOBIN A1C 11/12/2024 08/12/2024 BLOOD PRESSURE 02/14/2025 08/16/2024 INFLUENZA VACCINE (#1) 2025 , 10/20/2023, 09/29/2022, Additional history exists COVID-19 VACCINE ( season) 2025 07/04/2024, 10/20/2023, 09/29/2022, Additional history exists CREATININE LEVEL 08/12/2025 08/12/2024 LIPID PANEL 08/12/2025 08/12/2024 POTASSIUM LEVEL 08/12/2025 08/12/2024 Adult Td,Tdap Booster 04/02/2031 04/02/2021 ZOSTER VACCINES Completed 07/04/2024, 10/20/2023 HEPATITIS C SCREENING Completed 08/12/2024 , 08/12/2024, 08/12/2024 HIV ONE-TIME SCREENING (18-65 YEARS) Completed [...] Routine 07/03/2025 12:12 PM EDT Liver lesion ANATOMIC PATHOLOGY Routine 07/03/2025 10 :44 AM EDT POCT GLUCOSE Routine 07/03/2025 10:18 AM EDT PT-INR Routine 07/03/2025 8:41 AM EDT CBC Routine 07/03/2025 8:41 AM EDT HEMOGLOBIN A1C Routine 08/12/2024 10:08 AM EDT Pre-transplant evaluation for liver transplant LIPID PANEL Routine 08/12/2024 10:08 AM EDT Pre-transplant evaluation for liver transplant HEPATITIS C ANTIBODY, QUALITATIVE Routine 08/12/2024 10:08 AM EDT Need for hepatitis C screening test COMPREHENSIVE METABOLIC PANEL (CMP) Routine 08/12/2024 10:08 AM EDT Pre-transplant evaluation [...] and Indication: Decompensated MASLD cirrhosis referred to [facility] [place] [place] for transplant work-up. MRI showing enhancing abnormalities [...] independent provider spent 60 minutes of continuous ulim-rx-lsxa sedation time with the patient. Technique and Findings: Informed consent was obtained from the patient. The patient was placed in supine position on the CT table and ux consultant images were obtained. Previous MRI from 04/29/2025 [...] History and Indication: Decompensated MASLD cirrhosis referred [facility] for transplant work-up. MRI showing enhancing [...] licensedindependent provider spent 60 minutes of continuous pfpz-hp-rttz sedationtime with the patient. Technique and Findings: Informed consent was obtained from the patient. The patient was placed insupine position on the CT table and ux consultant images were obtained. PreviousMRI from 04/29/2025 was [...] the procedure well and was transported to [facility] area in stable condition. Specimens Submitted: None. [...] and Indication: Decompensated MASLD cirrhosis referred to [facility] [place] [place] for transplant work-up. MRI showing enhancing abnormalities [...] independent provider spent 60 minutes of continuous kmin-ra-ccdx sedation time with the patient. Technique and Findings: Informed consent was obtained from the patient. The patient was placed in supine position on the CT table and ux consultant images were obtained. Previous MRI from 04/29/2025 [...] edited the report originally created by Stevie Dnaiel. Procedure Note Mateo Aranda MD - 07/03/2025 Procedure: CT-Guided focal liver biopsy of caudate lobe lesion and segment5 lesion Clinical History and Indication: Decompensated MASLD cirrhosis referred [facility] for transplant work-up. MRI showing enhancing abnormalities in segment5 and caudate lobe. Referred to IR for sampling. Operators: Attending: Dr. Mateo rAanda MD Advanced Practice Provider: None. Resident/Fellow: Dr. [...] licensedindependent provider spent 60 minutes of continuous aedl-kv-jkbt sedationtime with the patient. Technique and Findings: Informed consent was obtained from the patient. The patient was placed insupine position on the CT table and ux consultant images were obtained. PreviousMRI from 04/29/2025 was [...] report originally createdby Stevie Daniel. us Brent HOOVERG IR Final Result * Anatomic Pathology (Non-MGB) (07/03/2025 10:44 AM EDT) Report [address], [place] [address] Surgical Pathology Report Patient Name: FINA MCKINNEY : 1970 (Age: 55) Sex: M Location: [facility] Institution: [facility] [place] [place] Date of Operation: 07/03/2025 Date of Reported: 07/08/2025 10:34 Results To: Brent Aranda MD FINAL PATHOLOGIC DIAGNOSIS: A. LIVER BIOPSY, CAUDATE: Cirrhotic liver parenchyma. See note below. B. LIVER BIOPSY, SEGMENT 5: Cirrhotic liver parenchyma. See note. Note: Trichrome stain (part B) highlights broad fibrous bands and nodule formation, consistent with cirrhosis (stage 4). Mild septal mononuclear inflammation and focal bile ductular reaction is present. The hepatic parenchyma shows no significant hepatocyte cytologic atypia; minimal steatosis is seen (<5%). Iron stain is negative for stainable iron (part B). In both biopsies, reticulin stain shows preserved sinusoidal basement membranes with no significant trabecular thickening. Glypican 3 immunostain is negative. PAS/D stain shows positive macrophages in the lobules but shows no intracytoplasmic globules. The findings are of cirrhotic liver parenchyma, with no specific features to suggest a particular etiology. The radiologic finding of two LR4 nodules is noted. 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 Electronically Signed Out By Flako Bolanos MD, PHD By his/her signature above, the pathologist listed as making the Final Diagnosis certifies that he/she has personally reviewed the case and confirmed the diagnosis. All slides and stains were of sufficient quality to establish the diagnosis, unless otherwise stated. CLINICAL HISTORY A-B (liver lesion) SPECIMENS SUBMITTED: A: LIVER BIOPSY, CAUDATE B: LIVER BIOPSY, SEGMENT 5 GROSS DESCRIPTION Received 2 containers each labeled Fina Mckinney and ) A. Received in formalin and labeled caudate liver biopsy are 4 lamar-red soft tissue cores ranging from 0.8 x 0.1 cm to 1.6 x 0.1 cm. Wrapped and entirely submitted into A1-A2. B. Received in formalin and labeled segment 5 liver biopsy are 3 lamar soft tissue cores ranging from 1.6 x 0.1 cm to 2.1 x 0.1 cm. Wrapped and entirely submitted into a B1-B2. Grossed by: Truman Huynh Immunohistochemical and in-situ hybridization tests performed at [facility] have been developed and their performance characteristics determined by the Immunohistochemistry Laboratories in the Department of Pathology at [facility]. They have not been cleared or approved by the U.S.Food and Drug Administration (FDA); the FDA has determined that such clearance or approval is not necessary. [facility] Clinical History A-B (liver lesion) [facility] Final Diagnosis A. LIVER BIOPSY, CAUDATE: Cirrhotic liver parenchyma. See note below. B. LIVER BIOPSY, SEGMENT 5: Cirrhotic liver parenchyma. See note. Note: Trichrome stain (part B) highlights broad fibrous bands and nodule formation, consistent with cirrhosis (stage 4). Mild septal mononuclear inflammation and focal bile ductular reaction is present. The hepatic parenchyma shows no significant hepatocyte cytologic atypia; minimal steatosis is seen (<5%). Iron stain is negative for stainable iron (part B). In both biopsies, reticulin stain shows preserved sinusoidal basement membranes with no significant trabecular thickening. Glypican 3 immunostain is negative. PAS/D stain shows positive macrophages in the lobules but shows no intracytoplasmic globules. The findings are of cirrhotic liver parenchyma, with no specific features to suggest a particular etiology. The radiologic finding of two LR4 nodules is noted. 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 [facility] Gross Description Received 2 containers each labeled Fina Mckinney and ) A. Received in formalin and labeled caudate liver biopsy are 4 lamar-red soft tissue cores ranging from 0.8 x 0.1 cm to 1.6 x 0.1 cm. Wrapped and entirely submitted into A1-A2. B. Received in formalin and labeled segment 5 liver biopsy are 3 lamar soft tissue cores ranging from 1.6 x 0.1 cm to 2.1 x 0.1 cm. Wrapped and entirely submitted into a B1-B2. [facility] Conversion Type (Liver) 07/03/2025 10:44 AM EDT 07/03/2025 12:40 PM EDT Conversion Type (Liver) 07/03/2025 10:44 AM EDT 07/03/2025 12:40 PM EDT us Brent Daniels MD LAB PATHOLOGY ORDERABLES Edited Result - Final Performing Organization Address [facility] Co de Phone Number [address] [address] * (ABNORMAL) POCT Glucose (07/03/2025 10:18 AM EDT) Glucose, POCT 123(H) 70 - 110 mg/dL [facility] 07/03/2025 10:1 8 AM EDT 07/03/2025 10:24 AM EDT us Brent Daniels MD POINT OF CARE TEST ORDERABLES Fi nal Result Performing Organization Address [facility] Co de Phone Number [address] [address] * (ABNORMAL) PT-INR (07/03/2025 8:41 AM EDT) PT 13.5(H) 10.0 - 13.0 sec [facility] INR 1.2(H) 0.9 - 1.1 [facility] Blood 07/03/2025 8:41 AM EDT 07/03/2025 8:47 AM EDT us Stevie JOHNSON LAB BLOOD BKR ORDERABL ES Final Result Performing Organization Address [facility] Co de Phone Number [address] [address] * (ABNORMAL) CBC (07/03/2025 8:41 AM EDT) WBC 7.53 4.00 - 11.00 K/uL [facility] RBC 5.36 4.50 - 5.90 M/uL [facility] HGB 15.8 13.5 - 17.5 g/dL [facility] HCT 46.0 41.0 - 53.0 % [facility] PLT 82(L) 150 - 450 K/uL [facility] MCV 85.8 80.0 - 100.0 fL [facility] MCH 29.5 27.0 - 31.0 pg [facility] MCHC 34.3 32.0 - 36.0 g/dL [facility] RDW 13.6 11.5 - 14.5 % [facility] MPV 11.2 8.4 - 12.0 fL [facility] NRBC 0.00 0.00 /100 WBCs [facility] ABSOLUTE NRBC 0.00 0.00 K/uL [facility] Blood 07/03/2025 8:41 AM EDT 07/03/2025 8:48 AM EDT us Stevie Daniel MBBS LAB BLOOD BKR ORDERABL ES Final Result Performing Organization Address City/State/[facility] Co de Phone Number [address] [address] * (ABNORMAL) Comprehensive metabolic panel (08/12/2024 10:08 AM EDT) SODIUM 138 133 - 146 mmol/L [facility] POTASSIUM 3.9 3.3 - 5.1 mmol/L [facility] CHLORIDE 101 96 - 108 mmol/L [facility] CO2 26 21 - 35 mmol/L [facility] BUN 14 6 - 19 mg/dL [facility] CREATININE 1.00 0.5 - 1.5 mg/dL [facility] GLUCOSE 167(H) 70 - 99 mg/dL [facility] ALBUMIN 4.7 3.9 - 4.8 g/dL [facility] TOTAL PROTEIN 9.0(H) 6.5 - 8.0 g/dL [facility] CALCIUM 9.8 8.4 - 10.3 mg/dL [facility] ALKALINE PHOSPHATASE 152(H) 39 - 117 U/L [facility] TOTAL BILIRUBIN 0.7 0.0 - 1.2 mg/dL [facility] AST 35 0 - 37 U/L [facility] ALT 23 0 - 40 U/L [facility] GLOBULIN 4.3 1 - 4.8 g/dL [facility] EGFR 89 >59 mL/min/1.7 3m2 [facility] Comment:Estimated glomerular filtration rate calculated using the CKD-EPI refit equation. ANION GAP 15 10 - 20 mmol/L [facility] Blood 08/12/2024 10:0 8 AM EDT 08/12/2024 10:33 AM EDT John Sapp MD LAB BLOOD BKR ORDERABLES Final R esult [address] [address] * Hepatitis C antibody, qualitative (08/12/2024 10:08 AM EDT) HCV NON-REACTIV E NON-REACTI VE [facility] Blood 08/12/2024 10:0 8 AM EDT 08/12/2024 10:33 AM EDT John Sapp MD LAB BLOOD BKR ORDERABLES Final R esult Performing Organization Address [facility]/ZIP Co de Phone Number [address] [address] * (ABNORMAL) Hemoglobin A1c (08/12/2024 10:08 AM EDT) HEMOGLOBIN A1C 8.2(H) 4.3 - 5.8 % [facility] Blood 08/12/2024 10:0 8 AM EDT 08/12/2024 10:25 AM EDT John Sapp MD LAB BLOOD BKR ORDERABLES Final R esult Performing Organization Address City/[facility]/ZIP Co de Phone Number [address] [address] * (ABNORMAL) Lipid panel (08/12/2024 10:08 AM EDT) HDL 41 mg/dL [facility] Comment: Interpretation <40 mg/dL: Low HDL cholesterol (major risk factor for CHD) Greater than or equal to 60 mg/dL: High HDL cholesterol ( negative risk factor for CHD) HDL - cholesterol is affected by a number of factors, e.g. smoking, excerise, hormones, sex and age. CHOLESTEROL 187 0 - 240 mg/dL [facility] TRIGLYCERIDES 187(H) 30 - 160 mg/dL [facility] LDL 109 50 - 129 mg/dL [facility] Comment: LDL levels in terms of risk for coronary heart disease: <100 mg/dL: Optimal 100-129 mg/dL: Near or above optimal 130-159 mg/dL: Borderline high 160-189 mg/dL: High >190 mg/dL: Very High CARDIAC RISK RATIO 4.6 3.4 - 5.0 C [facility] Blood 08/12/2024 10:0 8 AM EDT 08/12/2024 10:33 AM EDT John Sapp MD LAB BLOOD BKR ORDERABLES Final R esult [facility] [address] [place] [address] from Last 3 Months or Most Recently Relevant to Health Maintenance Insurance [employer] ACO ACO PARTNERSHIP ACO [facility] PARTNERSHIP ACO Care Teams Mid Level Net Developer Relationship Specialty Start Date End Date Tessa Lazo MD [address] [place] [address] PCP - General Internal Medicine 08/12/24 Additional Source Comments The information contained in this document represents components of the legal health record. It is not the complete legal health record.[facility]
--- OUTSIDE RECORDS SUMMARY | 2025-09-25 18:33 | XMS_ITS | Encounter Summary ---
Author Organization [facility] Address [facility] [employer] [address] [address] Phone Care Team Providers Care Board Layer Name Role Phone Tessa Lazo MD Primary Care Provider [phone] Reason for Referral * Outpatient Procedure - Closed Specialty Diagnoses / Procedures Referred By Vaughn machado Referred To Contact Radiology Diagnoses Liver mass Procedures IR Biopsy Abdomen/Pelvis; Liver; Focal KS NEEDLE BIOPSY LIVER CHG US GUIDE, VASCULAR ACCESS CHG SONO GUIDE NEEDLE BIOPSY CHG CT GUIDANCE NEEDLE PLACEMENT KS MOD SED SAME PHYS/QHP INITIAL 15 MINS 5/> YRS KS MOD SED SAME PHYS/QHP EACH ADDL 15 MINS John Sapp MD Phone: tel: fax: [email or web address] Referral ID Status Reason Start Date Expiration Date Visits Re quested Visits Authorized [id number] Closed 07/03/2025 12/31/2025 1 1 Encounter Details Date Type Department Care Team (Late st Contact Info) Description 07/03/2025 Ancillary Orders [facility] Imaging - RF/IR [address] [place] [address] John Sapp MD [facility] [address] [place] [address] [email or web address] Liver mass (Primary Dx) Social History Tobacco [...] and Indication: Decompensated MASLD cirrhosis referred to [facility] for transplant work-up. MRI showing enhancing abnormalities [...] independent provider spent 60 minutes of continuous cemd-jo-cchx sedation time with the patient. Technique and Findings: Informed consent was obtained from the patient. The patient was placed in supine position on the CT table and truck driver salesperson images were obtained. Previous MRI from 04/29/2025 [...] licensedindependent provider spent 60 minutes of continuous hzvb-ce-szvr sedationtime with the patient. Technique and Findings: Informed consent was obtained from the patient. The patient was placed insupine position on the CT table and truck driver salesperson images were obtained. PreviousMRI from 04/29/2025 was [...] liver documented in this encounter Care Teams Board Layer Relationship Specialty Start Date End Date Tessa Lazo MD [address] [place] [id number] PCP - General Internal Medicine 08/12/24 documented as of this encounter Additional Source Comments The information contained in this document represents components of the legal health record. It is not the complete legal health record.[facility]
--- OUTSIDE RECORDS SUMMARY | 2025-09-25 18:33 | XMS_ITS | Encounter Summary ---
Author Organization [facility] Address [facility] [address] [place] [address] Phone Care Team Providers Care Operations Professional Name Role Phone Tessa Lazo MD Primary Care Provider [phone] Encounter Details Date Type Department Care Team (Late st Contact Info) Description 05/30/2025 Procedure Pass [facility] Imaging - RF/IR [address] [place] [address] Social History Tobacco Use Types Packs/Day Years [...] on filedocumented in this encounter Care Teams Operations Professional Relationship Specialty Start Date End Date Tessa Lazo MD [address] [place] [address] PCP - General Internal Medicine 08/12/24 documented as of this encounter Additional Source Comments The information contained in this document represents components of the legal health record. It is not the complete legal health record.[facility]
== END 2025-09-25 15:43 | disposition home or self-care (01) ==
LOC: HO.CT 15:42
PROVIDERS: PCP Student in an Organized Health Care Education/Training Program; Visit Provider Hospitalist
DX: R91.8 Other nonspecific abnormal finding of lung field (principal)
CPT/HCPCS: 71250

== ENCOUNTER → 2025-09-25 15:44 | Outpatient (BNV) | payer OTHER, SELFPAY | PROVIDERS: PCP Student in an Organized Health Care Education/Training Program; Visit Provider Radiology Diagnostic Radiology | DX: R91.8 Other nonspecific abnormal finding of lung field (principal) | CPT/HCPCS: 71250 ==